=== PATIENT | male | born 1965 | race Caucasian/White ===

== ENCOUNTER 2019-11-26 16:42 | Emergency (ER) | payer BC, SELFPAY ==
[2019-11-26 16:56] VITALS: BP 140/91; PULSE 94; RESP 19; TEMP 36.6; O2SAT 98; BMI 32.8
--- NOTE | 2019-11-26 17:10 | HMH.EDUTC ---
[facility] [place] Clinical Impression: Exposure to COVID-19 virus Disposition: Home, Self-Care Condition on Discharge: Good Instructions: Preventing the Spread of Coronavirus Discharge Instructions Additional Instructions: Drink plenty of fluids. Take tylenol for pain or fever. Follow up with your regular doctor. GO TO THE ER FOR ANY WORSENING SYMPTOMS FOLLOW THE DIRECTIONS ON THE COVID-19 HAND OUT THAT WE GAVE YOU REGARDING SELF-ISOLATION UNTIL YOU KNOW YOUR COVID-19 RESULTS Referrals: PCP,No [Primary Care Provider] - Time of Disposition: 17:17 Medical Decision Making - Medical Records Medical records reviewed: No: I reviewed the patient's medical records. - Rik Inquiry Pt receiving controlled substance: No Vital Signs: 11/26/19 16:56 Temperature 97.9 F Temperature Source Oral Pulse Rate [Right Brachial] 94 H Respiratory Rate 19 Blood Pressure [Right Arm] 140/91 H Blood Pressure Mean [Right Arm] 107 Blood Pressure Source [Right Arm] Automatic Cuff Blood Pressure Position [Right Arm] Sitting 02 Sat by Pulse Oximetry 98 Oxygen Delivery Method Room Air Orders (Tests/Meds): ORDERS Category Date Time Status Covid-19 Nasal PCR ([facility]) Routine Lab 11/26/19 17:02 Ordered [facility] [place] - General Stated complaint: COVID Testing Time Seen by Provider: 11/26/19 17:15 Mode of Arrival: Ambulatory Source of Information: Patient Limitations: No Limitations Description of Symptoms (Recalled from Triage Doc. by RN): PATIENT STATES HE IS NEEDING A COVID TEST FOR NEW JOB. DENIES ANY SYMPTOMS HEENT Symptoms (Recalled from RN notes): No Resp Symptoms (Recalled from RN notes): No Skin Symptoms (Recalled from RN notes): No MS Symptoms (Recalled from RN notes): No Functional Status (Recalled from RN notes): WNL - History of Present Illness Provider Complaint: He needs to be tested for covid-19. he denies any symptoms. - Related Data Home Medications Medication Instructions Recorded Confirmed Aspirin [Aspirin 81mg chewable 81 mg PO DAILY 11/26/19 11/26/19 tab] Allergies Allergy/AdvReac Type Severity Reaction Status Date / Time Penicillins [PENICILLINS] Allergy Unknown is not Verified 02/13/19 01:18 effective - Worker's Comp Is this a Worker's Comp case?: No [facility] History - Hepatitis A Screen Drug use history?: No High risk sexual behaviors?: No History of sexually transmitted infection?: No Currently employed?: No Childcare worker?: No Do you have indoor plumbing?: Yes Do you have electricity?: Yes Attestation statement:: This patient has been screened for Hepatitis A risk factors. I have reviewed the patient's past medical history: Yes Medical History: Denies:: Diabetes Mellitus Type 1, Diabetes Mellitus Type 2, MRSA Amputation: No - Social History Smoking Status: Current every day smoker # Packs/Day (cigarettes): 1 Alcohol Intake: never Occupational Status: other ROS Obtained: Yes All systems reviewed & no additional complaints - Constitutional Constitutional: Denies chills, Denies fever(s) - Eyes Eyes: Denies eye discharge - ENT Ears, Nose, Mouth, and Throat: Denies dizziness, Denies otalgia, Denies sore throat - Cardiovascular Cardiovascular: Denies chest pain - Respiratory Respiratory: No chest congestion, No cough Physical Exam - General General appearance: alert, in no apparent distress - Head Head exam: atraumatic, normocephalic, normal inspection - Eye Eye exam: Present: normal appearance, PERRL, EOMI - ENT ENT exam: Present: normal exam, normal oropharynx, mucous membranes moist, TM's normal bilaterally, normal external ear exam - Neck Neck exam: Present: normal inspection, full ROM, trachea midline. Absent: meningismus, lymphadenopathy - Chest Chest inspection: Present: normal inspection, symmetric chest wall rise. Absent: tenderness - Respiratory Respiratory exam: Present: normal lung sounds bilat
[2019-11-26 17:52] VITALS: BP 140/91; PULSE 94; RESP 19; TEMP 36.6; O2SAT 98
== END 2019-11-26 17:55 | disposition home or self-care (01) ==
PROVIDERS: Emergency Provider Nurse Practitioner Family
DX: Z20.828 Contact with and (suspected) exposure to other viral communicable diseases (principal); F17.210 Nicotine dependence, cigarettes, uncomplicated
CPT/HCPCS: 99201; U0003

== ENCOUNTER 2021-08-27 16:13 | Emergency (ER) | payer BC, SELFPAY ==
[2021-08-27 17:00] VITALS: BP 135/86; PULSE 64; RESP 19; TEMP 36.7; O2SAT 97; BMI 31.7
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
[2021-08-27 17:36] VITALS: BP 135/86; PULSE 64; RESP 19; TEMP 36.7; O2SAT 97
== END 2021-08-27 17:41 | disposition home or self-care (01) ==
PROVIDERS: Emergency Provider Nurse Practitioner
DX: U07.1 COVID-19 (principal); B34.9 Viral infection, unspecified; F17.210 Nicotine dependence, cigarettes, uncomplicated; Z79.82 Long term (current) use of aspirin; Z88.0 Allergy status to penicillin
CPT/HCPCS: 99213; C9803; G0463; U0003; U0005

== ENCOUNTER 2021-10-14 10:45 | Emergency (ER) | payer BC, SELFPAY ==
[2021-10-14] VITALS (10 sets, daily range): BP systolic 108–129; BP diastolic 78–90; PULSE 64–100; RESP 17–20; TEMP 36.6–39.4; O2SAT 96–99; BMI 32.1
[2021-10-14 11:40] LABS: Color,Urine Dark Yellow (Yellow)
[2021-10-14 11:41] LABS: Apearance,Urine Cloudy (Clear); Bilirubin,Urine 1+ (Negative); Blood, Urine 3+ (Negative); Glucose,Urine (UA) Negative (Negative); Ketones,Urine TRACE (Negative); PH,Urine 5.5 (5.0-8.5); Protein,Urine 1+ (Negative); UTC Leukocyte Esterase,Urine Negative (Negative); UTC Nitrate,Urine Negative (Negative); Urobilinogen,Urine 1 EU/dl (0.2)
--- NOTE | 2021-10-14 11:54 | EXP.UTC ---
Discharge Plan Disposition Patient Disposition: Still a Patient Condition: Fair Chief Complaint: Upper Respiratory Infection Prescriptions Prescriptions: No Action aspirin 81 MG tablet,chewable 81 mg PO DAILY Referrals Referrals: Provider,Referral, MD [Primary Care Provider] - Enter time for follow up Clinical Impressions Clinical Impression: Abdominal pain Discharge ED Provider: Clair Villalta [facility] General Chief complaint: Upper Respiratory Infection Stated complaint: eyes swollen and red Mode of Arrival: Ambulatory Source of Information: Patient Limitations: No Limitations Time Seen by Provider: 10/14/21 13:13 Description of Symptoms (Recalled from Triage Doc. by RN): PATIENT C/O REDNESS AND SWELLING TO EYES X 1 MONTH AND FREQUENT URINATION THAT IS DARK IN COLOR X 4 DAYS HEENT Symptoms (Recalled from RN notes): Yes Resp Symptoms (Recalled from RN notes): No Skin Symptoms (Recalled from RN notes): No MS Symptoms (Recalled from RN notes): No Functional Status (Recalled from RN notes): WNL History of Present Illness Provider Complaint: Patient states he has been having redness, swelling and dryness to the skin around his eyes, nose and mouth but he has seen eye doctor and putting lotion on it States that he has been having frequent urination for the last four days with dark color and strong odor States that last night he started having pain in his lower abdomen that was uncomfortable States that this morning he is still having pain and discomfort in his abdomen so he came in Related Data Home Medications Medication Instructions Recorded Confirmed aspirin 81 mg chewable tablet 81 mg PO DAILY Heart disease 11/26/19 11/26/19 Allergies Allergy/AdvReac Type Severity Reaction Status Date / Time Penicillins [PENICILLINS] Allergy Unknown is not Verified 02/13/19 01:18 effective Worker's Comp Is this a Worker's Comp case?: No [facility] Medical History Urinary tract infection Social History Smoking Status: Current every day smoker alcohol intake: never current occupational status: other Travel in the last 8 weeks: None ROS Obtained: Yes All systems reviewed & no additional complaints except as documented and Yes Systems reviewed as appropriate & no additional complaints except as documented Constitutional Constitutional: Reports system reviewed and no additional complaints, except as documented and Reports as per HPI ENT Ears, Nose, Mouth, and Throat: Reports system reviewed and no additional complaints, except as documented and Reports as per HPI Cardiovascular Cardiovascular: Reports system reviewed and no additional complaints, except as documented and Denies chest pain Respiratory Respiratory: Reports system reviewed and no additional complaints, except as documented and Reports as per HPI Gastrointestinal Gastrointestingal: Reports system reviewed and no additional complaints, except as documented, abdominal pain (reports pain across lower abdomen that started last night) and belching Genitourinary Male Genitourinary: Reports system reviewed and no additional complaints, except as documented, Reports urinary frequency, Reports urinary urgency and Reports other (dark urine with foul odor) Musculoskeletal Musculoskeletal: Reports system reviewed and no additional complaints, except as documented Neurologic Neurologic: Reports system reviewed and no additional complaints, except as documented Physical Exam General General appearance: alert and in no apparent distress ENT ENT exam: Present normal exam and normal oropharynx Respiratory Respiratory exam: Present normal lung sounds bilaterally and respiratory distress Cardiovascular Cardiovascular exam: Present regular rate and normal rhythm Abdominal Exam Abdominal exam: Present soft and tenderness Abdominal tenderness: Present
--- NOTE | 2021-10-14 12:17 | PC.NURSE ---
PATIENT SENT TO ER PER Pati LANDAVERDE APRN FOR FURTHER EVALUATION. REPORT GIVEN TO Brandy MEI RN BY Pati LANDAVERDE APRN
--- NOTE | 2021-10-14 12:41 | CT_ITS ---
FINAL REPORT TECHNIQUE: Thin section axial images were obtained through the abdomen after intravenous contrast. Reconstruction images were obtained from the axial data. Exam was performed using dose reduction techniques. CLINICAL HISTORY: abd pain FINDINGS: There is new ground-glass and airspace opacity in the medial right lower lobe. There is a new mixed density nodule in the right lower lobe favoring infectious or inflammatory in nature. The liver is fatty infiltrated without focal lesion. The gallbladder is present. The spleen, adrenal glands, and pancreas are unremarkable. There is a nonobstructing stone in the right renal pelvis. There is no hydronephrosis however there is abnormal attenuation surrounding the right renal hilum with uroepithelial enhancement which could be infectious or inflammatory or related to a recently passed stone. There is no solid renal mass. Abdominal GI tract is without acute abnormality. There is no abdominal lymphadenopathy or ascites. The pelvic solid organs are unremarkable. The pelvic portions of the GI tract, including the appendix, are without acute abnormality. There is no pelvic lymphadenopathy or ascites. There is a small fat containing left inguinal hernia. No acute osseous abnormalities identified. IMPRESSION: 1. Abnormal attenuation in the right renal hilum with uroepithelial enhancement and a nonobstructing stone. These findings could be could be infectious, inflammatory or related to a recently passed stone. Additional consideration would be intermittent obstruction by the stone in the right renal hilum. 2. Findings concerning for new right lower lobe pneumonia. Consider follow-up. 3. Fatty liver. Reviewed, Interpreted and Dictated by Liliana Jackson MD Transcribed by Melissa Jordan Authenticated and [facility]
[2021-10-14 13:01] LABS: Basophils % 0.3 % (0.1-2.0); Eosinophils % 0.2 % (0.1-12.0); Hematocrit 45.5 % (42.0-52.0); Hemoglobin 14.6 g/dL (14.1-18.0); Lymphocytes # 1.6 K/mm3 (0.7-4.5); Lymphocytes % 12.2 % (10-50); Mean Corpuscular HGB Conc 32.1 g/dL (31.8-35.4); Mean Corpuscular Hemoglobin 31.7 pg (27.0-31.2); Mean Corpuscular Volume 98.6 fl (80-94); Mean Platelet Volume 8.2 fl (7.4-10.4); Monocytes # 1.2 K/mm3 (0.1-1.0); Monocytes % 9.2 % (1.7-9.3); Neutrophils % 78.1 % (37.0-80.0); Platelet Count 259 K/mm3 (142-424); Red Blood Count 4.62 M/mm3 (4.60-6.20); Red Cell Distribution Width 12.7 % (11.5-17.5); White Blood Count 12.8 K/mm3 (4.8-10.8)
[2021-10-14 13:07] LABS: Alanine Aminotransferase 22 U/L (12-78); Albumin/Globulin Ratio 1.1 (1.1-1.8); Alkaline Phosphatase 98 U/L (38-126); Aspartate Amino Transferase 29 U/L (17-59); Bilirubin,Total 1.8 mg/dl (0.2-1.3); Blood Urea Nitrogen 14 mg/dl (9-20); Carbon Dioxide 24 mmol/L (22.0-30.0); Chloride 100 mmol/L (98-107); Creatinine Clearance Estimated 122 mL/min (50-200); Estimated Glomerular Filt Rate 77 ml/min (>60); GFR (African American) 94 ML/MIN (>60); Globulin 3.8 g/dL (1.3-3.2); Glucose 158 mg/dl (74-100); Sodium 132 mmol/L (136-145); Total Protein,Serum 7.8 g/dl (6.3-8.2)
--- NOTE | 2021-10-14 13:16 | HMH.EDGENADL ---
Discharge Plan Disposition Patient Disposition: Home, Self-Care Condition: Good Chief Complaint: Upper Respiratory Infection Prescriptions Prescriptions: New sulfamethoxazole-trimethoprim [Bactrim DS] 800-160 mg tablet 1 tab PO BID 10 Days Qty: 20 0RF No Action aspirin 81 MG tablet,chewable 81 mg PO DAILY Referrals Referrals: Provider,MD Foreign [Primary Care Provider] - Enter time for follow up Abran Henry MD [Staff Physician] - 7-14 days Activity Restrictions/Add. Instructions Additional Instructions/Restrictions: You were evaluated in the emergency department today. You were diagnosed with a urinary tract infection and a kidney stone. Please follow-up outpatient with urology in 1 week. Return to the emergency department for any new or worsening symptoms. community support associate your prescription for your antibiotic and take the full course as prescribed. Clinical Impressions Clinical Impression: Abdominal pain, Acute UTI, Kidney stone on right side Instructions Patient Instructions: DI for Kidney Stones, DI for Urinary Tract Infection (UTI) Discharge ED Provider: Clair Villalta General Adult HPI General Chief complaint: Upper Respiratory Infection Stated complaint: eyes swollen and red Time Seen by Provider: 10/14/21 13:13 Mode of Arrival: Ambulatory Source of Information: Patient Limitations: No Limitations Description of Symptoms (Recalled from ER Triage Doc. by RN): PATIENT C/O REDNESS AND SWELLING TO EYES X 1 MONTH AND FREQUENT URINATION THAT IS DARK IN COLOR X 4 DAYS History of Present Illness HPI narrative: This patient is a 56-year-old male presenting to the emergency department from urgent treatment center for evaluation of redness, swelling, and itching around his eyes for 1 month and urinary symptoms that started several days ago. His skin has been itchy. He states that his urine has become more dark, and he is having to urinate much more frequently. He also states that he has had an increase in urinary frequency and lower abdominal pain. No fevers, chills, chest pain, shortness of breath, or other concerns at home. No vision changes. He was sent over emergent treatment center for evaluation, as he had bilirubin in his urine. Related Data Home Medications Medication Instructions Recorded Confirmed aspirin 81 mg chewable tablet 81 mg PO DAILY Heart disease 11/26/19 11/26/19 Previous Rx's Medication Instructions Recorded sulfamethoxazole 800 1 tab PO BID 10 days #20 tabs 10/14/21 mg-trimethoprim 160 mg tablet (Bactrim DS) Allergies Allergy/AdvReac Type Severity Reaction Status Date / Time Penicillins [PENICILLINS] Allergy Unknown is not Verified 02/13/19 01:18 effective PFSH PFSH Medical History Urinary tract infection Social History Smoking Status: Former smoker alcohol intake: never current occupational status: other ROS Obtained: Yes All systems reviewed & no additional complaints except as documented 14 point review of systems obtained and negative except otherwise mentioned in HPI Physical Exam General General appearance: alert and in no apparent distress Head Head exam: atraumatic and normocephalic Eye Eye exam: Present PERRL, EOMI and other (Erythema and mild periorbital swelling of both eyes. No pain with extraocular movements.); Absent conjunctival redness ENT ENT exam: Present normal exam Neck Neck exam: Present normal inspection and full ROM Chest Chest inspection: Present normal inspection and symmetric chest wall rise Respiratory Respiratory exam: Present normal lung sounds bilaterally; Absent respiratory distress Cardiovascular Cardiovascular exam: Present normal rhythm and tachycardia Abdominal Exam Abdominal exam: Present soft and tenderness (Suprapubic); Absent distention, guarding or rebound Extremities Exam Extremitie
--- NOTE | 2021-10-14 13:34 | PC.NURSE ---
Blood cultures and lactic drawn and sent to lab
--- NOTE | 2021-10-14 14:17 | PC.NURSE ---
rounded on pt at this timee. no needs voiced. at the bedside with pt.
--- NOTE | 2021-10-14 16:00 | PC.NURSE ---
DR COPELAND SPEAKING TO DR GARCIA
== END 2021-10-14 18:27 | disposition home or self-care (01) ==
LOC: UTC 12:11 → ER 12:17
PROVIDERS: Nurse Practitioner; Emergency Provider Emergency Medicine
DX: N39.0 Urinary tract infection, site not specified (principal); N20.0 Calculus of kidney; Z88.0 Allergy status to penicillin; I48.91 Unspecified atrial fibrillation
CPT/HCPCS: 74177; 80053; 81003; 83605; 85025; 87040; 87086; 87088; 87186; 96365; 96367; 99285; J0696; Q9967

== ENCOUNTER 2021-10-14 20:08 | Emergency (ER) | payer BC, SELFPAY ==
[2021-10-14 20:09] VITALS: BP 160/76; PULSE 107; RESP 18; TEMP 38.2; O2SAT 98; BMI 32.1
[2021-10-14 20:31] VITALS: BP 129/81; PULSE 112; O2SAT 97
[2021-10-14 21:01] LABS: Basophils # 0.1 K/mm3 (0-0.2); Basophils % 0.5 % (0.1-2.0); Eosinophils # 0.1 K/mm3 (0.0-0.4); Eosinophils % 0.7 % (0.1-12.0); Hematocrit 45.8 % (42.0-52.0); Hemoglobin 14.6 g/dL (14.1-18.0); Lymphocytes # 0.9 K/mm3 (0.7-4.5); Lymphocytes % 7.9 % (10-50); Mean Corpuscular HGB Conc 31.9 g/dL (31.8-35.4); Mean Corpuscular Hemoglobin 31.8 pg (27.0-31.2); Mean Corpuscular Volume 99.8 fl (80-94); Mean Platelet Volume 8.1 fl (7.4-10.4); Monocytes # 0.7 K/mm3 (0.1-1.0); Monocytes % 5.8 % (1.7-9.3); Neutrophils # 9.6 K/mm3 (1.8-7.8); Neutrophils % 85.1 % (37.0-80.0); Platelet Count 245 K/mm3 (142-424); Red Blood Count 4.59 M/mm3 (4.60-6.20); Red Cell Distribution Width 12.6 % (11.5-17.5); White Blood Count 11.3 K/mm3 (4.8-10.8)
--- NOTE | 2021-10-14 21:02 | HMH.EDRECH ---
Discharge Plan Disposition Patient Disposition: Home, Self-Care Chief Complaint: Recheck/Abnormal Lab/Rx Prescriptions Prescriptions: New levofloxacin 500 mg tablet 500 mg PO DAILY Qty: 7 0RF No Action aspirin 81 MG tablet,chewable 81 mg PO DAILY sulfamethoxazole-trimethoprim [Bactrim DS] 800-160 mg tablet 1 tab PO BID 10 Days Qty: 20 0RF Referrals Referrals: Provider,Referral, MD [Primary Care Provider] - Enter time for follow up Clinical Impressions Clinical Impression: CAP (community acquired pneumonia), SIRS (systemic inflammatory response syndrome) Instructions Patient Instructions: Pneumonia-Adult Discharge ED Provider: Jaskaran Silvaeck HPI General Chief Complaint: Recheck/Abnormal Lab/Rx Stated Complaint: possible reaction Time Seen by Provider: 10/14/21 21:02 Mode of Arrival: Ambulatory Source of Information: Patient, Relative and Medical Record Limitations: No Limitations Description of Symptoms (Recalled from ER Triage Doc. by RN): pt states was seen in the er eariler and diagnosed with UTI and kidney stone. after leaving pt became shaking all over and uunable to stop. pt denies any pain or other symptooms History of Present Illness HPI narrative: recent ed eval and concerns about possible kidney stone but has fever/chills since with occ cough - recent covid-19 about 2 weeks ago complaint: other Returns today for: other (fever/chills ) Associated symptoms: fever and chills Related Data Home Medications Medication Instructions Recorded Confirmed aspirin 81 mg chewable tablet 81 mg PO DAILY Heart disease 11/26/19 11/26/19 Previous Rx's Medication Instructions Recorded levofloxacin 500 mg tablet 500 mg PO DAILY #7 tabs 10/14/21 sulfamethoxazole 800 1 tab PO BID 10 days #20 tabs 10/14/21 mg-trimethoprim 160 mg tablet (Bactrim DS) Allergies Allergy/AdvReac Type Severity Reaction Status Date / Time Penicillins [PENICILLINS] Allergy Unknown is not Verified 02/13/19 01:18 effective PFSH PFS Medical History Urinary tract infection Social History (Updated 10/14/21 @ 20:34 by Clair Villalta DO) Smoking Status: Former smoker alcohol intake: never current occupational status: other Travel in the last 8 weeks: None ROS Obtained: Yes Systems reviewed as appropriate & no additional complaints except as documented Constitutional Constitutional: Reports chills and Reports fever(s) Physical Exam General General appearance: alert and in no apparent distress Head Head exam: normocephalic Eye Eye exam: Present PERRL ENT ENT exam: Present normal oropharynx and other (early rosacea) Neck Neck exam: Present full ROM and trachea midline Respiratory Respiratory exam: Present normal lung sounds bilaterally Cardiovascular Cardiovascular exam: Present regular rate and systolic murmur Abdominal Exam Abdominal exam: Present soft Extremities Exam Extremities exam: Absent edema or calf tenderness Neurological Exam Neurological exam: Present alert, oriented X3 and CN II-XII intact Psychiatric Psychiatric exam: Present normal affect Skin Skin exam: Present rash (skin changes as noted above ) Medical Decision Making Medical Records Medical records reviewed: Yes I reviewed the patient's medical records. Rik Inquiry Pt receiving controlled substance: No Vital Signs: 10/14/21 20:09 10/14/21 20:31 10/14/21 21:05 Temperature 100.7 F H Temperature Source Oral Pulse Rate 112 H 110 H Pulse Rate [Right] 107 H Respiratory Rate 18 Blood Pressure 129/81 135/78 Blood Pressure [Right Arm] 160/76 H Blood Pressure Mean [Right Arm] 104 02 Sat by Pulse Oximetry 98 97 98 Oxygen Delivery Method Room Air Room Air 10/14/21 21:30 10/14/21 22:30 Temperature Temperature Source Pulse Rate 101 H 94 H Pulse Rate [Right] Respiratory Rate Blood Pressure 125/78 116/73
[2021-10-14 21:05] VITALS: BP 135/78; PULSE 110; O2SAT 98
--- NOTE | 2021-10-14 21:05 | XR_ITS ---
PROCEDURE INFORMATION: Exam: XR Chest Exam date and time: 10/14/2021 9:05 PM Age: 56 years old Clinical indication: Fever TECHNIQUE: Imaging protocol: Radiologic exam of the chest. Views: 2 views. COMPARISON: CT ABDOMEN PELVIS W CON 10/14/2021 2:32 PM FINDINGS: Lungs: Unremarkable. No consolidation. Pleural spaces: Unremarkable. No pleural effusion. No pneumothorax. Heart/Mediastinum: Unremarkable. No cardiomegaly. Bones/joints: Mild degenerative changes. IMPRESSION: No acute findings.
[2021-10-14 21:07] LABS: Alanine Aminotransferase 24 U/L (12-78); Albumin/Globulin Ratio 1.1 (1.1-1.8); Alkaline Phosphatase 92 U/L (38-126); Anion Gap 11.7 mEq/L (5-15); Aspartate Amino Transferase 30 U/L (17-59); Bilirubin,Total 1.4 mg/dl (0.2-1.3); Blood Urea Nitrogen 15 mg/dl (9-20); Calcium 8.9 mg/dl (8.4-10.2); Carbon Dioxide 27 mmol/L (22.0-30.0); Chloride 100 mmol/L (98-107); Creatinine Clearance Estimated 122 mL/min (50-200); Estimated Glomerular Filt Rate 77 ml/min (>60); GFR (African American) 94 ML/MIN (>60); Globulin 3.6 g/dL (1.3-3.2); Glucose 250 mg/dl (74-100); MANUAL DIFFERENTIAL MANUAL DIFFERENTIAL (MANUAL DIFF); Potassium 3.7 mmoL/L (3.5-5.1); Sodium 135 mmol/L (136-145); Total Protein,Serum 7.6 g/dl (6.3-8.2)
[2021-10-14 21:12] LABS: C-Reactive Protein 94.8 mg/L (0-4)
[2021-10-14 21:25] LABS: Microscopic, Urine URINE MICROSCOPIC (MICROSCOPIC)
[2021-10-14 21:27] LABS: Appearance,Urine CLEAR (Clear); Bilirubin,Urine Negative (Negative); Blood, Urine 2+ (Negative); Color,Urine YELLOW (Yellow); Glucose,Urine (UA) 3+ (Negative); Ketones,Urine TRACE (Negative); Leukocyte Esterase,Urine Negative (Negative); Nitrate,Urine Negative (Negative); PH,Urine 5.5 (5.0-8.5); Protein,Urine TRACE (Negative); Specific Gravity, Urine 1.025 (1.005-1.030)
[2021-10-14 21:30] VITALS: BP 125/78; PULSE 101; O2SAT 98
[2021-10-14 21:35] LABS: Coronavirus 19, PCR Not Detected (NotDetected); Influenza A, PCR Not Detected (NotDetected); Influenza B, PCR Not Detected (NotDetected)
[2021-10-14 21:37] LABS: Eosinophils % 1 % (0-3); Lymphocytes % 16 % (10-50); Monocytes % 1 % (2-9); Neutrophils % 82 % (42-76); Platelet Estimate Normal; RBC Morphology Normal; Total Cells Counted 100
[2021-10-14 21:40] LABS: Erythrocyte Sedimentation Rate 37 mm/hr (0-20)
--- NOTE | 2021-10-14 21:44 | CT_ITS ---
PROCEDURE INFORMATION: Exam: CT Chest Without Contrast; Diagnostic Exam date and time: 10/14/2021 9:55 PM Age: 56 years old Clinical indication: Fever TECHNIQUE: Imaging protocol: Diagnostic computed tomography of the chest without contrast. Radiation optimization: All CT scans at this facility use at least one of these dose optimization techniques: automated exposure control; mA and/or kV adjustment per patient size (includes targeted exams where dose is matched to clinical indication); or iterative reconstruction. COMPARISON: CR XR CHEST 2V 10/14/2021 9:05 PM FINDINGS: Thyroid: Thyroid is unremarkable. Lungs: Current study confirms consolidation and air bronchograms in the medial aspect of the right lower lobe compatible with infectious pneumonia. Subcentimeter calcified granuloma right lower lobe lung. Patchy infiltrates elsewhere within the right upper lobe. Pleural spaces: Scattered pleural based tiny nodularities which are probably benign but should be followed. Heart: Not enlarged. Mediastinal space: Calcified granulomas are identified in the right hilum and subcarinal mediastinum. Reactive soft tissue nodes elsewhere in the pretracheal and right hilar distribution. Lymph nodes: Calcified and noncalcified lymph nodes. Vasculature: Calcifications within thoracic aorta and coronary arteries. Diaphragm: Sliding hiatal hernia. Kidneys and ureters: Contrast within the kidneys from recent CT scan. Bones/joints: Degenerative spondylosis and facet arthropathy within the spine. Soft tissues: See Mediastinal space finding. IMPRESSION: 1. Right lower lobe pneumonia. Patchy infiltrates right upper lobe. Mild reactive right hilar and mediastinal adenopathy. 2. Atherosclerotic vascular disease. 3. Sliding hiatal hernia. 4. Contrast within the kidneys from recent CT scan. 5. Scattered pleural based tiny nodularities which are probably benign but should be followed.
--- NOTE | 2021-10-14 21:44 | PC.NURSE ---
Pt and family updated on POC. No needs voiced.
[2021-10-14 21:49] LABS: Bacteria,Urine 2+ /lpf; Squamous Epithelial Cell,Urine Occasional #/hpf (0-5); WBC,Urine Occasional #/hpf (0-3)
[2021-10-14 22:26] LABS: Hemoglobin A1C 6.8 % (4.0-6.0)
[2021-10-14 22:30] VITALS: BP 116/73; PULSE 94; O2SAT 96
[2021-10-15 00:58] VITALS: BP 114/72; PULSE 92; RESP 16; TEMP 37.2; O2SAT 97
== END 2021-10-15 01:02 | disposition home or self-care (01) ==
PROVIDERS: Emergency Provider Emergency Medicine
DX: J18.9 Pneumonia, unspecified organism (principal); Z79.82 Long term (current) use of aspirin; Z88.0 Allergy status to penicillin; Z87.891 Personal history of nicotine dependence; I48.91 Unspecified atrial fibrillation
CPT/HCPCS: 71046; 71250; 80053; 81001; 83036; 83605; 85007; 85025; 85651; 86140; 96365; 96367; 96375; 99285; C9803; J0456; U0003; U0005

== ENCOUNTER 2021-10-15 14:50 | Inpatient (IN) | payer BC, SELFPAY ==
[2021-10-15] VITALS (10 sets, daily range): BP systolic 114–152; BP diastolic 67–105; PULSE 85–103; RESP 13–24; TEMP 36.7–39.5; O2SAT 95–99; BMI 32.1; BMI 31.2
--- NOTE | 2021-10-15 14:48 | ECG_ITS ---
APPROVED REPORT Exam: Resting ECG HR:109 bpm ECG Measurements Heart Rate 109 AXES QRSd 82 QRS -26 QT 298 T 51 QTc 362 Conclusion ATRIAL FIBRILLATION WITH RAPID VENTRICULAR RESPONSE BORDERLINE LEFT AXIS DEVIATION [QRS AXIS < -20] ABNORMAL RHYTHM ECG UNCONFIRMED REPORT Electronically signed by : Beau Buckley MD 10/16/2021 07:59:49
--- NOTE | 2021-10-15 15:09 | XR_ITS ---
FINAL REPORT CLINICAL HISTORY: chest pain COMPARISON: October 14, 2021 FINDINGS: The heart size is normal. The mediastinum is normal. There is no focal infiltrate or edema. There are no pleural effusions. There is no pneumothorax. There is no osseous abnormality. IMPRESSION: No acute cardiopulmonary process Reviewed, Interpreted and Dictated by Chuy Catalan MD Transcribed by Berenice Washington Authenticated and [facility]
[2021-10-15 15:35] LABS: Alanine Aminotransferase 27 U/L (12-78); Albumin Level 3.7 g/dl (3.5-5.0); Albumin/Globulin Ratio 1.1 (1.1-1.8); Alkaline Phosphatase 81 U/L (38-126); Anion Gap 9.8 mEq/L (5-15); Aspartate Amino Transferase 37 U/L (17-59); Bilirubin,Total 0.4 mg/dl (0.2-1.3); Blood Urea Nitrogen 12 mg/dl (9-20); Calcium 8.6 mg/dl (8.4-10.2); Carbon Dioxide 25 mmol/L (22.0-30.0); Chloride 103 mmol/L (98-107); Creatinine Clearance Estimated 135 mL/min (50-200); Estimated Glomerular Filt Rate 87 ml/min (>60); GFR (African American) 106 ML/MIN (>60); Globulin 3.4 g/dL (1.3-3.2); Glucose 134 mg/dl (74-100); Lactic Acid 1.9 mmol/L (0.7-2.1); Potassium 3.8 mmoL/L (3.5-5.1); Sodium 134 mmol/L (136-145); Total Protein,Serum 7.1 g/dl (6.3-8.2)
[2021-10-15 15:41] LABS: Basophils # 0.1 K/mm3 (0-0.2); Basophils % 0.5 % (0.1-2.0); Eosinophils # 0.2 K/mm3 (0.0-0.4); Eosinophils % 1.5 % (0.1-12.0); Hematocrit 37.1 % (42.0-52.0); Hemoglobin 13.4 g/dL (14.1-18.0); Lymphocytes # 1.5 K/mm3 (0.7-4.5); Lymphocytes % 14.6 % (10-50); Mean Corpuscular HGB Conc 36.1 g/dL (31.8-35.4); Mean Corpuscular Hemoglobin 33.3 pg (27.0-31.2); Mean Corpuscular Volume 92.4 fl (80-94); Mean Platelet Volume 7.9 fl (7.4-10.4); Monocytes # 0.9 K/mm3 (0.1-1.0); Monocytes % 9.1 % (1.7-9.3); Neutrophils # 7.5 K/mm3 (1.8-7.8); Neutrophils % 74.2 % (37.0-80.0); Platelet Count 208 K/mm3 (142-424); Red Blood Count 4.01 M/mm3 (4.60-6.20); Red Cell Distribution Width 12.1 % (11.5-17.5); White Blood Count 10.1 K/mm3 (4.8-10.8)
[2021-10-15 15:53] LABS: Troponin I < 0.01 ng/ml (0.00-0.034)
--- NOTE | 2021-10-15 18:17 | HMH.EDGENADL ---
Discharge Plan Disposition Patient Disposition: Admitted as Observation Condition: Fair Chief Complaint: Chest Pain Prescriptions Prescriptions: No Action sulfamethoxazole-trimethoprim [Bactrim DS] 800-160 mg tablet 1 tab PO BID levofloxacin 500 mg tablet 500 mg PO DAILY Referrals Referrals: Provider,Referral, [Primary Care Provider] - Enter time for follow up Clinical Impressions Clinical Impression: Pneumonia, Atrial fibrillation, new onset Discharge ED Provider: Rusty Garrett General Adult HPI General Chief complaint: Chest Pain Stated complaint: chest pain Time Seen by Provider: 10/15/21 18:20 Mode of Arrival: Ambulatory Source of Information: Patient Limitations: No Limitations Description of Symptoms (Recalled from ER Triage Doc. by RN): to ed per pvt car with c/o chest pressure, sob, nausea. pt seen yesterday in ed and dx with pneumonia and given levaquin. pt states chest pain and sob worse with exertion. History of Present Illness HPI narrative: This is of the third visit to this emergency department for this patient in 2 days. He presented initially to the urgent treatment center yesterday with some allergy symptoms but also dark urine and lower abdominal pain. He was sent to the emergency department for further evaluation and had a CT scan of his abdomen and pelvis which showed a renal calculus and questionable findings of pyelonephritis or recently passed stone. There is also noted to be an infiltrate in the lung portion of the CT. He was discharged on Bactrim with urology follow-up. He developed severe shaking which sounds like rigors, return to the emergency department. He had further work-up including CT scan of the chest without contrast which showed pulmonary infiltrates. He was discharged on Levaquin. He says that he went to work today but at work began having chest pain in the center of his chest as well as shortness of breath, particular with exertion. He only has a slight cough. No rhinorrhea or sore throat. No flank or back pain except for his chronic back pain which is unchanged. No vomiting or diarrhea. No urinary symptoms today. No abdominal pain today. Related Data Home Medications Medication Instructions Recorded Confirmed levofloxacin 500 mg tablet 500 mg PO DAILY Infection 10/15/21 10/15/21 sulfamethoxazole 800 1 tab PO BID Infection 10/15/21 10/15/21 mg-trimethoprim 160 mg tablet (Bactrim DS) Allergies Allergy/AdvReac Type Severity Reaction Status Date / Time Penicillins [PENICILLINS] Allergy Unknown is not Verified 02/13/19 01:18 effective PFSH [facility] Medical History Urinary tract infection Social History (Updated 10/15/21 @ 15:20 by Kamala Wiley RN) Smoking Status: Former smoker alcohol intake: never current occupational status: other Travel in the last 8 weeks: None ROS Obtained: Yes Systems reviewed as appropriate & no additional complaints except as documented Constitutional Constitutional: Reports chills and Reports fever(s) ENT Ears, Nose, Mouth, and Throat: Denies nasal discharge and Denies sore throat Cardiovascular Cardiovascular: Reports chest pain and Reports dyspnea on exertion Respiratory Respiratory: Reports shortness of breath, Reports cough (Slight, nonproductive) and Reports dyspnea on exertion Gastrointestinal Gastrointestingal: Reports abdominal pain (Yesterday but not today); Denies diarrhea or vomiting Genitourinary Male Genitourinary: Reports as per HPI and Denies flank pain Musculoskeletal Musculoskeletal: Reports back pain (Chronic) Physical Exam General General appearance: alert and in no apparent distress Head Head exam: atraumatic and normocephalic Eye Eye exam: Present normal appearance and EOMI ENT ENT exam: Present normal exam and mucous membranes moist Neck Neck exam: Present normal inspection and full ROM; Absent meningism
--- NOTE | 2021-10-15 18:27 | CT_ITS ---
PROCEDURE INFORMATION: Exam: CTA Chest With Contrast Exam date and time: 10/15/2021 6:44 PM Age: 56 years old Clinical indication: Sternal or substernal pain; Additional info: Chest pain, SOA TECHNIQUE: Imaging protocol: Computed tomographic angiography of the chest with contrast. 3D rendering (Not supervised by radiologist): MIP and/or 3D reconstructed images were created by the technologist. Radiation optimization: All CT scans at this facility use at least one of these dose optimization techniques: automated exposure control; mA and/or kV adjustment per patient size (includes targeted exams where dose is matched to clinical indication); or iterative reconstruction. Contrast material: ISOVUE 370; Contrast volume: 70 ml; Contrast route: INTRAVENOUS (IV); COMPARISON: CT CHEST WO CON 10/14/2021 9:55 PM FINDINGS: Pulmonary arteries: Normal. No pulmonary emboli. Aorta: Click aortic arch. Lungs: Densely calcified granuloma right lung base. Increasing region of consolidation involving the right lower lobe. Patchy infiltrative somewhat nodular region of opacification in the right upper lobe has progressed. Pleural spaces: Unremarkable. No pneumothorax. No pleural effusion. Heart: No evidence of coronary artery calcification. Lymph nodes: Calcified subcarinal lymph nodes as well as noncalcified perihilar lymph nodes again demonstrated. Noncalcified pretracheal lymph nodes again identified. Bones/joints: Thoracic spondylosis. Soft tissues: Unremarkable. IMPRESSION: 1. No evidence of pulmonary embolus. 2. Increasing regions of consolidation involving the right lower lobe and right upper lobe as described above. Commonly reported imaging features of COVID-19 pneumonia are present. Other processes such as influenza pneumonia and organizing pneumonia, as can be seen with drug toxicity and connective tissue disease, can cause a similar imaging pattern. (Reference: Edgardo) 3. Evidence of previous granulomatous disease. REFERENCES: Edgardo Diamond et al., Radiological Society of [place] Expert Consensus Statement on Reporting Chest CT Findings Related to COVID-19. Endorsed by the Society of Thoracic Radiology, the [place] [employer], and RSNA. Published May 15, 2019.
[2021-10-15 18:46] LABS: Troponin I < 0.01 ng/ml (0.00-0.034)
[2021-10-15 19:09] LABS: Free Thyroxine Index 2.1 ug/dL (5.93-13.13); T4 (Thyroxine) 6.5 ug/dl (5.53-11.0); Triiodothryronine (T3) Uptake 33 % (23.5-40.5)
[2021-10-15 19:23] LABS: Thyroid Stimulating Hormone 1.35 uIU/mL (0.465-4.68)
[2021-10-15 19:59] LABS: Coronavirus 19, PCR Not Detected (NotDetected); Influenza A, PCR Not Detected (NotDetected); Influenza B, PCR Not Detected (NotDetected)
[2021-10-15 20:19] LABS: Adenovirus,PCR Not Detected (NotDetected); Bordetella Pertussis Not Detected (NotDetected); Chlamydophila Pneumoniae, PCR Not Detected (NotDetected); Coronavirus 19, PCR Not Detected (NotDetected); Coronavirus 229E Not Detected (NotDetected); Coronavirus NL63 Not Detected (NotDetected); Coronavirus OC43 Not Detected (NotDetected); Coronovirus HKU1,PCR Not Detected (NotDetected); Human Metapneumovirus Not Detected (NotDetected); Influenza A, PCR Not Detected (NotDetected); Influenza AH1, 2009 Not Detected (NotDetected); Influenza AH1, PCR Not Detected (NotDetected); Influenza AH3,PCR Not Detected (NotDetected); Influenza B, PCR Not Detected (NotDetected); Mycoplasma Pneumoniae, PCR Not Detected (NotDetected); Parainfluenza 1, PCR Not Detected (NotDetected); Parainfluenza 2, PCR Not Detected (NotDetected); Parainfluenza 3, PCR Not Detected (NotDetected); Parainfluenza 4, PCR Not Detected (NotDetected); Respiratory Syncytial Virus Not Detected (NotDetected); Rhinovirus/Enterovirus Not Detected (NotDetected)
--- NOTE | 2021-10-15 20:23 | PC.NURSE ---
at updating pt about POC
--- NOTE | 2021-10-15 20:31 | PC.NURSE ---
House notified of pt admission and need for bed assignment.
[2021-10-15 22:03] LABS: Troponin I < 0.01 ng/ml (0.00-0.034)
--- NOTE | 2021-10-15 22:23 | PC.NURSE ---
PT ARRIVED TO FLOOR AT 22:06
[2021-10-16] VITALS (7 sets, daily range): BP systolic 137–153; BP diastolic 66–83; PULSE 61–96; RESP 17–24; TEMP 36.7–37.5; O2SAT 96–98; BMI 31.2
--- NOTE | 2021-10-16 04:42 | PC.NURSE ---
Patient a&o x4. Patient tolerating RA with sats above 90%. Patient ambulates to the restroom independently. VSS. Call light in reach.
[2021-10-16 09:02] LABS: Basophils # 0.1 K/mm3 (0-0.2); Basophils % 0.6 % (0.1-2.0); Eosinophils # 0.3 K/mm3 (0.0-0.4); Eosinophils % 3.4 % (0.1-12.0); Hematocrit 38.5 % (42.0-52.0); Hemoglobin 12.7 g/dL (14.1-18.0); Lymphocytes # 1.5 K/mm3 (0.7-4.5); Lymphocytes % 18.7 % (10-50); Mean Corpuscular HGB Conc 32.9 g/dL (31.8-35.4); Mean Corpuscular Volume 97.2 fl (80-94); Mean Platelet Volume 8.7 fl (7.4-10.4); Monocytes # 0.7 K/mm3 (0.1-1.0); Monocytes % 8.5 % (1.7-9.3); Neutrophils # 5.7 K/mm3 (1.8-7.8); Neutrophils % 68.8 % (37.0-80.0); Platelet Count 248 K/mm3 (142-424); Red Blood Count 3.96 M/mm3 (4.60-6.20); Red Cell Distribution Width 12.7 % (11.5-17.5); White Blood Count 8.2 K/mm3 (4.8-10.8)
--- NOTE | 2021-10-16 09:17 | EXP.HP ---
History of Present Illness *Admission Date: 10/15/21 *Reason for visit:: fever *History of present illness: this patient had been in the ed with fever and was felt yo have cap - he was given iv abx and d/c home as op - pt returned to the ed per pvt car with c/o chest pressure, sob, nausea. pt seen yesterday in ed and dx with pneumonia and given levaquin. pt states chest pain and sob worse with exertion. This is of the third visit to this emergency department for this patient in 2 days.? He presented initially to the urgent treatment center yesterday with some allergy symptoms but also dark urine and lower abdominal pain.? He was sent to the emergency department for further evaluation and had a CT scan of his abdomen and pelvis which showed a renal calculus and questionable findings of pyelonephritis or recently passed stone.? There is also noted to be an infiltrate in the lung portion of the CT.? He was discharged on Bactrim with urology follow-up.? He developed severe shaking which sounds like rigors, return to the emergency department.? He had further work-up including CT scan of the chest without contrast which showed pulmonary infiltrates.? He was discharged on Levaquin.? He says that he went to work today but at work began having chest pain in the center of his chest as well as shortness of breath, particular with exertion.? He only has a slight cough.? No rhinorrhea or sore throat.? No flank or back pain except for his chronic back pain which is unchanged.? No vomiting or diarrhea.? No urinary symptoms today.? No abdominal pain today.pt was noted to have a fib and had increased sx and was admitted - [facility] Medical History Urinary tract infection Social History (Updated 10/15/21 @ 15:20 by Kamala Wiley RN) Smoking Status: Former smoker alcohol intake: never current occupational status: other Travel in the last 8 weeks: None Review of Systems Review of Systems Review of systems:: pertinent systems reviewed and negative unless documented below Meds Home Medications and Allergies Home Medications Medication Instructions Recorded Confirmed Type levofloxacin 500 mg tablet 500 mg PO DAILY Infection 10/15/21 10/15/21 History sulfamethoxazole 800 1 tab PO BID Infection 10/15/21 10/15/21 History mg-trimethoprim 160 mg tablet (Bactrim DS) New Prescriptions to Start Prescriptions: Allergies Allergy/AdvReac Type Severity Reaction Status Date / Time Penicillins [PENICILLINS] Allergy Unknown is not Verified 02/13/19 01:18 effective Exam Data for Last 24 hours Vital signs and Labs for Last 24 Hours: Temp Pulse Resp BP Pulse Ox 99.3 F 87 24 141/73 H 97 10/16/21 08:00 10/16/21 08:00 10/16/21 08:00 10/16/21 08:00 10/16/21 08:00 Laboratory Results - last 24 hr 10/15/21 15:00: WBC 10.1, RBC 4.01 L, Hgb 13.4 L, Hct 37.1 L, MCV 92.4, MCH 33.3 H, MCHC 36.1 H, RDW 12.1, Plt Count 208, MPV 7.9, Neut % (Auto) 74.2, Lymph % (Auto) 14.6, [place] % (Auto) 9.1, Eos % (Auto) 1.5, Baso % (Auto) 0.5, Neut # (Auto) 7.5, Lymph # (Auto) 1.5, [place] # (Auto) 0.9, Eos # (Auto) 0.2, Baso # (Auto) 0.1 10/15/21 15:00: Sodium 134 L, Potassium 3.8, Chloride 103, Carbon Dioxide 25, Anion Gap 9.8, BUN 12, Creatinine 0.90, Estimated Creat Clear 135, Estimated GFR 87, Est GFR ( Amer) 106, Glucose 134 H D, Calcium 8.6, Total Bilirubin 0.4, AST 37, ALT 27, Alkaline Phosphatase 81, Troponin I < 0.01, Total Protein 7.1, Albumin 3.7, Globulin 3.4 H, Albumin/Globulin Ratio 1.1 10/15/21 15:00: Lactate 1.9 10/15/21 15:00: TSH 1.35, Free T4 Index 2.1 L, Thyroxine (T4) 6.5, T3 Uptake 33 10/15/21 16:00: Chlamy pneumoniae PCR Not detected, Adenovirus (PCR) Not detected, B. pertussis DNA (PCR) Not detected, Coronavirus OC43 (PCR) Not detected, Coronavirus HKU1 (PCR) Not detected, Coronavirus 229E (PCR) Not detected, SARS-CoV-2 (PCR) Not detected, Coronavirus NL63 (PCR) N
--- NOTE | 2021-10-16 11:18 | P.CONPHA_ITS ---
[facility] Pharmacy VTE Monitoring Patient Demographics Admission date: 10/15/21 Report Date: 10/16/21 Time: 11:18 Patient Allergies Penicillins [PENICILLINS] Allergy (Unknown, Verified 02/13/19 01:18) is not effective Height: 1.8 m Weight: 101.236 kg Current Active Problems (Updated 10/15/21 @ 20:29 by Rusty Garrett MD) Pneumonia (Acute) Atrial fibrillation, new onset (Acute) VTE Risk Labs: VTE Related Lab Results Hgb 12.7 g/dL (14.1-18.0) L 10/16/21 08:35 Hct 38.5 % (42.0-52.0) L 10/16/21 08:35 Plt Count 248 K/mm3 (142-424) 10/16/21 08:35 BUN 12 mg/dl (9-20) 10/15/21 15:00 Creatinine 0.90 mg/dl (0.66-1.25) 10/15/21 15:00 Estimated Creat Clear 135 mL/min (50-200) 10/15/21 15:00 Was VTE Risk Assessment Performed: Yes VTE Score: 2 VTE Risk Level: Very Low Risk Clinical Trial Participant: No Prophylaxis VTE Prophylaxis Ordered?: Yes Types of VTE Prophylaxis: TEDS Knee High Location of Applied Device: Bilateral Lower Extremeties
--- NOTE | 2021-10-16 11:18 | HMH.PHAINT1 ---
Pharmacy Intervention Comments: MEDICATION RECONCILIATION COMPLETE USING LIST FROM MOST RECENT ED VISIT.
--- NOTE | 2021-10-16 16:30 | PC.NURSE ---
Gave pt specimen cup to try and get sputum specimen. He stated that his is unable to get anything up and will try. If he does he stated that he will let me know.
--- NOTE | 2021-10-16 18:46 | PC.NURSE ---
Pt is A/Ox4. He has tolerated his cardiac diet well today. He is independent in the room to go the bathroom. His is at bedside.
[2021-10-17 04:00] VITALS: BP 106/54; PULSE 60; RESP 17; TEMP 36.9; O2SAT 97
[2021-10-17 04:13] VITALS: BMI 31.5
--- NOTE | 2021-10-17 04:15 | PC.NURSE ---
No acute changes since previous assessment. Pt has rested intermittently this shift. Remains alert and oriented x4. Has been afebrile this shift. Ambulating independently in room. Lung sounds remain clear bilaterally. Tolerating room air well. Pt did c/o a headache once this shift and was medicated per apr. no c/o n/v/d or shortness of breath. Pt expresses his desire to be discharged. VSS.
[2021-10-17 08:00] VITALS: BP 120/80; PULSE 75; RESP 16; TEMP 36.7; O2SAT 96
--- NOTE | 2021-10-17 08:15 | PC.NURSE ---
Spoke with RT about Sputum.
--- NOTE | 2021-10-17 08:42 | ECG_ITS ---
APPROVED REPORT Exam: Resting ECG HR:70 bpm ECG Measurements Heart Rate 70 AXES QRSd 79 QRS 18 QT 379 T 39 QTc 400 Conclusion ATRIAL FIBRILLATION ABNORMAL RHYTHM ECG UNCONFIRMED REPORT Electronically signed by : Beau Buckley MD 10/18/2021 20:11:33
[2021-10-17 08:55] LABS: Basophils # 0.1 K/mm3 (0-0.2); Basophils % 0.8 % (0.1-2.0); Eosinophils # 0.5 K/mm3 (0.0-0.4); Eosinophils % 6.7 % (0.1-12.0); Hematocrit 40.1 % (42.0-52.0); Hemoglobin 12.8 g/dL (14.1-18.0); Lymphocytes # 1.4 K/mm3 (0.7-4.5); Mean Corpuscular HGB Conc 31.8 g/dL (31.8-35.4); Mean Corpuscular Hemoglobin 31.2 pg (27.0-31.2); Mean Platelet Volume 8.4 fl (7.4-10.4); Monocytes # 0.6 K/mm3 (0.1-1.0); Monocytes % 7.7 % (1.7-9.3); Neutrophils # 4.6 K/mm3 (1.8-7.8); Neutrophils % 64.8 % (37.0-80.0); Platelet Count 271 K/mm3 (142-424); Red Cell Distribution Width 12.6 % (11.5-17.5); White Blood Count 7.1 K/mm3 (4.8-10.8)
--- NOTE | 2021-10-17 09:08 | PC.NURSE ---
courtesy tech round: Pt was sleep on right side. Call light within reach.
[2021-10-17 09:11] LABS: Alanine Aminotransferase 23 U/L (12-78); Albumin Level 3.2 g/dl (3.5-5.0); Alkaline Phosphatase 88 U/L (38-126); Anion Gap 14.1 mEq/L (5-15); Aspartate Amino Transferase 28 U/L (17-59); Blood Urea Nitrogen 8 mg/dl (9-20); Calcium 8.4 mg/dl (8.4-10.2); Carbon Dioxide 25 mmol/L (22.0-30.0); Chloride 108 mmol/L (98-107); Creatinine Clearance Estimated 199 mL/min (50-200); Estimated Glomerular Filt Rate 139 ml/min (>60); GFR (African American) 169 ML/MIN (>60); Globulin 3.2 g/dL (1.3-3.2); Glucose 211 mg/dl (74-100); Potassium 4.1 mmoL/L (3.5-5.1); Sodium 143 mmol/L (136-145); Total Protein,Serum 6.4 g/dl (6.3-8.2)
[2021-10-17 09:19] LABS: Bilirubin,Total < 0.1 mg/dl (0.2-1.3)
--- NOTE | 2021-10-17 10:40 | EXP.DC.SUM ---
General Admission date:: 10/15/21 Discharge date: 10/17/21 HPI HPI HPI: this patient had been in the ed with fever and was felt yo have cap - he was given iv abx and d/c home as op - pt returned to the ed per pvt car with c/o chest pressure, sob, nausea. pt seen yesterday in ed and dx with pneumonia and given levaquin. pt states chest pain and sob worse with exertion. This is of the third visit to this emergency department for this patient in 2 days.? He presented initially to the urgent treatment center yesterday with some allergy symptoms but also dark urine and lower abdominal pain.? He was sent to the emergency department for further evaluation and had a CT scan of his abdomen and pelvis which showed a renal calculus and questionable findings of pyelonephritis or recently passed stone.? There is also noted to be an infiltrate in the lung portion of the CT.? He was discharged on Bactrim with urology follow-up.? He developed severe shaking which sounds like rigors, return to the emergency department.? He had further work-up including CT scan of the chest without contrast which showed pulmonary infiltrates.? He was discharged on Levaquin.? He says that he went to work today but at work began having chest pain in the center of his chest as well as shortness of breath, particular with exertion.? He only has a slight cough.? No rhinorrhea or sore throat.? No flank or back pain except for his chronic back pain which is unchanged.? No vomiting or diarrhea.? No urinary symptoms today.? No abdominal pain today.pt was noted to have a fib and had increased sx and was admitted - Hospital Course Hospital Course Hospital Course: pt has did well on ivf and abx with stable labs and vital signs and will be d/c on xarelto for new a fib and see card on monday and continue abx as outpt Exam Data for Last 24 hours Vital signs and Labs for Last 24 Hours: Temp Pulse Resp BP Pulse Ox 98.1 F 75 16 120/80 96 10/17/21 08:00 10/17/21 08:00 10/17/21 08:00 10/17/21 08:00 10/17/21 08:00 Laboratory Results - last 24 hr 10/17/21 08:45: WBC 7.1, RBC 4.10 L, Hgb 12.8 L, Hct 40.1 L, MCV 98.0 H, MCH 31.2, MCHC 31.8, RDW 12.6, Plt Count 271, MPV 8.4, Neut % (Auto) 64.8, Lymph % (Auto) 20.0, [place] % (Auto) 7.7, Eos % (Auto) 6.7, Baso % (Auto) 0.8, Neut # (Auto) 4.6, Lymph # (Auto) 1.4, [place] # (Auto) 0.6, Eos # (Auto) 0.5 H, Baso # (Auto) 0.1 10/17/21 08:45: Sodium 143, Potassium 4.1, Chloride 108 H, Carbon Dioxide 25, Anion Gap 14.1, BUN 8 L D, Creatinine 0.60 L D, Estimated Creat Clear 199, Estimated GFR 139, Est GFR ( Amer) 169 D, Glucose 211 H, Calcium 8.4, Total Bilirubin < 0.1 L, AST 28, ALT 23, Alkaline Phosphatase 88, Total Protein 6.4, Albumin 3.2 L, Globulin 3.2, Albumin/Globulin Ratio 1.0 L I & O for Last 24 hours: Intake & Output 10/14/21 10/15/21 10/16/21 10/17/21 11:59 11:59 11:59 11:59 Intake Total 910 2016 Output Total 0 / 0 0 / 0 Balance 0 2016 Weight 223 lb 3 oz 225 lb 4 oz Constitutional Constitutional: no acute distress *Routine HEENT Exam Head: Present atraumatic Eye: Present EOMI and PERRL ENT: Present mucous membranes moist *Routine Neck Exam Neck: Absent JVD *Routine Respiratory Exam Respiratory: Present decreased breath sounds *Routine Cardiovascular Exam Cardiovascular: Present murmur and irregular rhythm *Routine Abdominal Exam Abdominal: Present soft *Routine Rectal Exam Comments: deffered *Routine Exam Comments: deferred *Routine Extremities Exam Extremities: Absent edema *Routine Skin Exam Skin: Present rash (rash to face ) *Routine Neurological Exam Neurological: Present alert and CN II-XII intact Routine Psychiatric Exam Psychiatric: Present cooperative Results Data Completed and Pending Labs on day of discharge: Labs from last 24 hours 08/28/22 08/28/22 08:45 08:45 WBC 7.1 RBC 4.10 L Hgb 12.8 L Hct 40.1 L MCV 98.0 H MCH 31.
--- NOTE | 2021-10-17 11:52 | PC.NURSE ---
Gave pt desmond, and told him about being able to D/C. He stated that his will not be here until after 1300.
--- NOTE | 2021-10-17 12:23 | PC.NURSE ---
D/C packet is being fixed will.
--- NOTE | 2021-10-17 12:57 | HMH.PHAINT1 ---
Pharmacy Intervention Comments: DISCHARGE MEDICATION COUNSELING PROVIDED. DISCUSSED CONTINUING THE LEVAQUIN AND ADDITION XARELTO 20 MG DAILY WITH EVENING MEAL. WATCH FOR SIGNS/SYMPTOMS OF BLEEDING, BLOOD IN URINE/STOOL/VOMIT, AND IF YOU BUMP HEAD GO TO THE ER TO RULE OUT HEAD BLEED. PATIENT VERBALIZED NO QUESTIONS AT THIS TIME.
--- NOTE | 2021-10-19 14:04 | CARE MANAGER ---
Attempted post-discharge interview, no answer.
== END 2021-10-17 13:09 | disposition home or self-care (01) | DRG 195 ==
LOC: ER 20:29 → 2ND 20:51
PROVIDERS: Admitting Provider Emergency Medicine; Emergency Provider Emergency Medicine; Visit Provider Emergency Medicine
DX: J18.9 Pneumonia, unspecified organism (principal); Z87.891 Personal history of nicotine dependence; I48.91 Unspecified atrial fibrillation; E66.9 Obesity, unspecified; Z68.34 Body mass index [BMI] 34.0-34.9, adult; G89.29 Other chronic pain; M54.9 Dorsalgia, unspecified
CPT/HCPCS: 36415; 71045; 71275; 80053; 83605; 84436; 84443; 84479; 84484; 85025; 87040; 87581; 87632; 87798; 93005; 99285; C9803; G0378; J0456; J0696; Q9967; U0003; U0005

== ENCOUNTER → 2021-10-26 06:24 | Outpatient (CLI) | payer BC, SELFPAY ==
--- NOTE | 2021-10-26 06:25 | CA_ITS ---
APPROVED REPORT Exam: Pharmacologic Technologist: Paz Gabriel, Ht: 5 ft 11 in Wt: 221 lbs BSA: 2.20 m2 HR: 78 bpm BP: 124/84 mmHg Indications: Afib Medical History Medications: XaRELTO,,,,, BisOPROLOL Fumarate,,,,, Levofloxacin,,,,, Stress Test Details Test: LEXISCAN Reason for pharmacologic stress test: physical limitation. HR Resting HR: 56 bpm Max Heart Rate (APMHR): 164.723666 bpm Max HR Achieved: 122 bpm Target HR (85% APMHR): 139.293061 bpm % of APMHR: 74.39 Recovery HR: 80 bpm BP Resting BP: 124/84 mmHg Max BP: 137/82 mmHg Recovery BP: 120.0/87.0 mmHg ECG Resting ECG: Afib, controlled rate, T wave abn lead III, rightward axis Clinical Exercise duration: 04:00 min Highest Stage Achieved: Exercise capacity: 1.0 METs Stress ECG Conclusion Symptoms: SOA, mild stomach discomfort. Arrhythmias/Ectopy: Afib throughout. ST-T Changes: No significant changes. Conclusion: Unremarkable Lexiscan stress. Myoview images reported septarately. Electronically signed by : Reno Bustamante MD 10/26/2021 20:03:47
--- NOTE | 2021-10-26 06:25 | NM_ITS ---
APPROVED REPORT Exam: Nuclear Stress Test Indication: Chest pain, SOB, Abnormal EKG, Family history Patient Location: Outpatient Stress Tech: Paz Story [place] Tech:Yenny Harrington, ARRT, RT (R)(N) Ht: 5 ft 11 in Wt: 230 lbs HR: 56 bpm BP: 124/84 mmHg BSA: 2.24 m2 TID: 1.22 BMI: 32.0 History: Chest pain, SOB, Abnormal EKG, Family history Procedure: Patient received a 0.4 mg of intravenous Lexiscan, resting heart rate 56 bpm, resting blood pressure 124/84 mmHg, with Lexiscan maximum heart rate achived was 122 bpm which is Less than 85 % of the maximum predicted heart rate and blood pressure was 137/82 mmHg. With Lexiscan, patient denied any complaint of chest pain. Electrocardiogram Resting electrocardiogram shows atrial fibrillation, with Lexiscan there is less than 1.[address] segment depression noted from the baseline EKG. The EKG portion of the Lexiscan is nondiagnostic. Cardiac Stress and Resting SPECT Images: Cardiac Stress and Resting SPECT images were obtained using technetium 99m Myoview 32.9 mCi stress and 10.28 mCi at rest. Gated SPECT analysis of segmental wall motion and calculation of the ejection fraction also done. Prone images were also obtained. Cardiac stress and rest SPECT images uniform myocardial activity without segmental perfusion abnormality, computer derived ejection fraction is 41% with no regional wall motion abnormality, however during this study patient was in atrial fibrillation which may underestimate the ejection fraction by gated SPECT. Conclusion: 1. The EKG portion of the Lexiscan is nondiagnostic. 2. No scintigraphic evidence of reversible ischemia seen, computer derived ejection fraction is 41% with no regional wall motion abnormality, however during this study patient was in atrial fibrillation which may underestimate the ejection fraction by gated SPECT. 3. Likely normal Lexiscan Myoview study. Electronically signed by : Reno Bustamante MD 10/26/2021 20:07:28
--- NOTE | 2021-10-26 06:25 | CA_ITS ---
APPROVED REPORT EXAM: Comprehensive 2D, Doppler, and color-flow Echocardiogram Rn Oncology Clinical: Itzel Molina, RCS, RVS Ht: 5 ft 11 in Wt: 221lbs BSA: 2.20 BP: 132/70 mmHg Indications: CP, AFIB, Ex-smoker, SOB, Obesity 2D Dimensions IVSd 0.76 cm LVEF (Visual) 71.90 % PWd 1.12 cm LA Volume 53.30 mL LVDd 4.81 cm LA Volume Index [id number] mL/m2 (M/F) 16-34 LVDs 2.83 cm Left Atrium 4.49 cm LVOT 2.12 cm (M/F) 1.5-2.5 M-Mode Dimensions RVDd 1.93 cm (0.9-2.6) LA Diam 5.21 cm (1.9-4.0) LVDd 4.79 cm (3.5-5.7) Ao Diam 3.11 cm (2.0-3.7) LVDs 3.34 cm (3.5-5.7) IVSd 1.09 cm (0.6-1.1) PWd 1.09 cm (0.6-1.1) EF (Teich) 57.60% EPSs 0.48 cm FS 30.30% EDV (Teich) 107.00 mL TAPSE 2.24 (<1.7) ESV (Teich) 45.40 mL LV Diastology E Decel Time 127.00 (160-240 msec) E/A Ratio 3.14 MED E' 9.60 (< 7 cm/sec) MED A' 3.90 cm/s E'/MED E' Ratio 13.05 (>14) LAT A' 2.70 cm/s Aortic Valve LVOT Max 96.00 (70-110 cm/s) LVOT VTI 19.77 cm AoV Peak Taye. 125.00 (50-130 cm/s) AO Peak GR. 6.20 mmHg AO Mean GR. 3.10 (<5 mmHg) AO VTI 25.43 (18-25 cm) MOY (VTI) 2.74 (2.5-4.5 cm2) Mitral Valve MV A Velocity 40.00 (40-130 cm/s) E/A Ratio 3.14 MV Decel. Time 127.00 (160-240 ms) MV PHT 37.00 ms Pulmonary Valve PV Peak Velocity 86.00 (50-150 cm/s) MS End VMAX 86.00 cm/s Tricuspid Valve TR P. Velocity 146.00 cm/s RAP Estimate 10.00 mmHg RVSP 18.50 mmHg Left Ventricle Left atrium is mildly enlarged, left ventricle is normal size mild concentric left ventricular hypertrophy, estimated ejection fraction 55% with no regional wall motion abnormality, diastolic parameters are inconclusive. Right Ventricle Right atrium and right ventricle are mildly enlarged with normal contractility. Aortic Valve Aortic valve is minimally thickened and fibrosed there is no aortic stenosis aortic insufficiency. Mitral Valve Mitral valve grossly normal, there is trace mitral regurgitation. Tricuspid Valve Tricuspid grossly normal, there is trace tricuspid regurgitation, tricuspid regurgitation jet velocity is inadequate for calculation of the right ventricular systolic pressure. Pulmonic Valve Pulmonic valve is poorly visualized. Great Vessels Aortic root is normal size. Inferior vena cava is poorly visualized. Pericardium No significant pericardial effusion noted. Conclusion 1. Mild biatrial enlargement, normal left ventricular size, mild concentric left ventricular hypertrophy, estimated ejection fraction 55% with no regional wall motion abnormality, diastolic parameters are inconclusive. 2. Mildly enlarged right ventricle with normal contractility. 3. Trace mitral and tricuspid regurgitation. 4. No significant pericardial effusion noted. 5. Inferior vena cava is poorly visualized. Electronically signed by : Reno Bustamante MD 10/26/2021 19:45:33
--- NOTE | 2021-10-26 08:30 | HMH.ITSHM ---
Current Home Medications as stated by this patient Bucky Davila JR or client service representative. []RIVAROXABAN LEVOFLOXACIN BISOPROLOL
== END ==
LOC: RAD 06:25
PROVIDERS: PCP Emergency Medicine; Visit Provider Nurse Practitioner Family
DX: R07.9 Chest pain, unspecified (principal); R60.0 Localized edema; I48.91 Unspecified atrial fibrillation; R94.31 Abnormal electrocardiogram [ECG] [EKG]; E66.9 Obesity, unspecified; Z68.31 Body mass index [BMI] 31.0-31.9, adult
CPT/HCPCS: 78452; 93017; 93306; A9502; J2785

== ENCOUNTER → 2022-01-20 11:02 | Outpatient (CLI) | payer BC, SELFPAY ==
--- NOTE | 2022-01-20 11:08 | XR_ITS ---
FINAL REPORT TECHNIQUE: Chest PA & Lateral CLINICAL HISTORY: sob, smoker COMPARISON: September 2021 FINDINGS: 2 views of the chest were performed. The heart size is normal. There are calcified right hilar lymph nodes. There is a calcified granuloma in the right upper lobe. There is no acute airspace infiltrate. There are no pleural effusions. There is no pneumothorax. The bony thorax appears intact. IMPRESSION: No acute cardiopulmonary process. Reviewed, Interpreted and Dictated by Chuy Catalan MD Transcribed by Sukhwinder Staples Authenticated and [facility]
== END ==
PROVIDERS: PCP Emergency Medicine; Visit Provider Internal Medicine Pulmonary Disease
DX: R06.02 Shortness of breath (principal)
CPT/HCPCS: 71046

== ENCOUNTER 2022-01-21 17:25 | Emergency (ER) | payer BC, SELFPAY ==
--- NOTE | 2022-01-21 18:38 | EXP.UTC ---
Discharge Plan Disposition Patient Disposition: Home, Self-Care Condition: Good Prescriptions Prescriptions: New ciprofloxacin HCl [Cipro] 500 mg tablet 500 mg PO BID 14 Days Qty: 28 0RF No Action bisoprolol fumarate 5 mg tablet 5 mg PO QDAY Qty: 30 5RF Xarelto 20 mg tablet 20 mg PO QPMWITHMEAL Qty: 30 5RF Rx Instructions: must administer with evening meal Referrals Follow up/Referrals: Jaskaran Silva MD [Primary Care Provider] - See instructions Activity Restrictions/Add. Instructions Additional Instructions/Restrictions: Drink plenty of fluids. Take tylenol for pain or fever. Take the medications as directed. Follow up with your regular doctor. GO TO THE ER FOR ANY WORSENING SYMPTOMS Clinical Impressions Clinical Impression: Gross hematuria, UTI (urinary tract infection) Instructions Patient Instructions: DI for Urinary Tract Infection (UTI), DI for Hematuria, Ciprofloxacin Discharge ED Provider: Huang Valentine [facility] General Stated complaint: blood in urine Time Seen by Provider: 01/21/22 18:39 History of Present Illness Provider Complaint: He has been having blood in his urine for the past 10 days approx. He was referred to a urologist but he was 2 minutes late to his appointment so they would not see him today. So, out of the need for help with his gross hematuria, he came here to be evaluated. Related Data Previous Rx's Medication Instructions Recorded bisoprolol fumarate 5 mg tablet 5 mg PO QDAY #30 tabs 10/19/21 rivaroxaban 20 mg tablet (Xarelto) 20 mg PO QPMWITHMEAL AFIB #30 tabs 10/19/21 ciprofloxacin HCl 500 mg tablet 500 mg PO BID 14 days #28 tabs 01/21/22 (Cipro) Allergies Allergy/AdvReac Type Severity Reaction Status Date / Time Penicillins [PENICILLINS] Allergy Unknown is not Verified 01/20/22 10:03 effective hay fever Allergy Mild Uncoded 01/20/22 10:03 [facility] Disclaimer: The information contained in this section may have been updated after the patient was seen, as this information can be updated by other users. Medical History Abnormal electrocardiogram [ECG] [EKG] Atrial fibrillation, new onset Dyspnea on exertion Hilar lymphadenopathy History of 2019 novel coronavirus disease (COVID-19) Lung nodule seen on imaging study Obesity (BMI 30-39.9) Urinary tract infection Surgical History History of colonoscopy History of elbow surgery History of lithotripsy History of lumbar surgery Family History Other Cancer Coronary artery disease Diabetes Heart attack Hypertension Social History Smoking Status: Former smoker alcohol intake: never current occupational status: other Travel in the last 8 weeks: None ROS Obtained: Yes All systems reviewed & no additional complaints except as documented Constitutional Constitutional: Denies chills and Denies fever(s) Eyes Eyes: Denies eye discharge ENT Ears, Nose, Mouth, and Throat: Denies dizziness, Denies otalgia and Denies sore throat Cardiovascular Cardiovascular: Denies chest pain Respiratory Respiratory: Denies shortness of breath, Denies chest congestion, Denies cough, Denies stridor and Denies wheezing Gastrointestinal Gastrointestingal: Denies nausea or vomiting Musculoskeletal Musculoskeletal: Reports system reviewed and no additional complaints, except as documented and Denies arthralgias Integumentary/Breasts Skin/Breast: Denies rash Neurologic Neurologic: Denies dizziness and Denies paresthesias Allergic/Immunologic Allergic/Immunologic: Denies wheezing Physical Exam General General appearance: alert and in no apparent distress Head Head exam: atraumatic, normocephalic and normal inspection Eye Eye exam: Present normal appearance, PER
[2022-01-21 18:49] VITALS: BP 133/84; PULSE 68; RESP 16; TEMP 37.1; O2SAT 98; BMI 31.4
[2022-01-21 19:06] LABS: Apearance,Urine Turbid (Clear); Color,Urine Amber (Yellow); PH,Urine 5.5 (5.0-8.5); Specific Gravity, Urine 1.025 (1.005-1.030)
[2022-01-21 19:07] LABS: Glucose,Urine (UA) Negative (Negative); Ketones,Urine SMALL (Negative); Protein,Urine 3+ (Negative)
[2022-01-21 19:08] LABS: Blood, Urine 3+ (Negative)
[2022-01-21 19:10] LABS: Bilirubin,Urine 3+ (Negative); Urobilinogen,Urine 2 EU/dl (0.2)
[2022-01-21 19:11] LABS: UTC Leukocyte Esterase,Urine 3+ (Negative); UTC Nitrate,Urine Positive (Negative)
[2022-01-21 19:23] VITALS: BP 133/84; PULSE 68; RESP 16; TEMP 37.1
== END 2022-01-21 19:29 | disposition home or self-care (01) ==
PROVIDERS: Emergency Provider Nurse Practitioner Family; PCP Emergency Medicine
DX: R31.0 Gross hematuria (principal); N39.0 Urinary tract infection, site not specified
CPT/HCPCS: 81003; 87086; 96372; 99212; G0463; J0696

== ENCOUNTER → 2022-04-07 14:39 | Outpatient (CLI) | payer BC, SELFPAY ==
--- NOTE | 2022-04-07 14:40 | CT_ITS ---
FINAL REPORT CLINICAL HISTORY: FORMER SMOKER, QUIT 6 MONTHS AGO, 1 PPD X 18 YRS COMPARISON: 10/15/2021 FINDINGS: Low-Dose Chest CT Axial images were obtained from the lung apex to the mid abdomen by computed tomography. Low-dose protocol was utilized. CTDI vol (mGy): 2.90 DLP (mGy-cm): 114.64 There is a mildly prominent precarinal lymph node but overall lymphadenopathy in the mediastinum has improved. There is no axillary adenopathy. There is no hilar adenopathy. The heart is proper size. There is no pericardial or pleural effusion. Lung window images demonstrate a 3 mm subpleural nodule in the left lower lobe on image 40. This was not well seen on the prior exam. There is evidence of prior granulomatous disease. Previously seen right lower lobe pneumonia has resolved. No other mass or nodule is identified. Limited images of the upper abdomen are unremarkable. IMPRESSION: Lung RADS category 2. Recommend 12 month follow-up low-dose chest CT. Interval resolution of previously seen right lower lobe pneumonia. Reviewed, Interpreted and Dictated by Liliana Jackson MD Transcribed by Melissa Jordan Authenticated and [facility]
== END ==
PROVIDERS: PCP Emergency Medicine; Visit Provider Internal Medicine Pulmonary Disease
DX: Z87.891 Personal history of nicotine dependence (principal); Z12.2 Encounter for screening for malignant neoplasm of respiratory organs
CPT/HCPCS: 71271

== ENCOUNTER 2022-05-16 12:40 | Emergency (ER) | payer BC, SELFPAY ==
[2022-05-16 13:00] VITALS: BP 130/75; PULSE 103; RESP 20; TEMP 36.7; O2SAT 99; BMI 30.9
--- NOTE | 2022-05-16 13:38 | EXP.UTC ---
Discharge Plan Disposition Patient Disposition: Home, Self-Care Condition: Good Prescriptions Prescriptions: No Action Xarelto 20 mg tablet See Rx Instructions .ROUTE .COMPLEX Rx Instructions: TAKE 1 TABLET BY MOUTH EVERY EVENING WITH MEAL FOR ATRIAL FIBRILLATION bisoprolol fumarate 5 mg tablet 5 mg PO QDAY Referrals Follow up/Referrals: Jaskaran Silva MD [Primary Care Provider] - See instructions Activity Restrictions/Add. Instructions Additional Instructions/Restrictions: *Monitor Temp, Over the counter Motrin or Tylenol as directed/as needed Tylenol every 4 hours and Motrin every 6 hours (as long as your family doctor has told you that you can take it) for fever or pain. and straight to ER if unable to lower temp less than 101.0 after medication given *Warm salt water gargles may help to soothe the throat *Throat Lozenges? *Warm fluids like tea with honey may help to soothe the throat? *Sleep elevated *Humidifier/Vaporizer Your throat swab was sent for culture. Those results are typically sent to your primary care. Be sure to follow up in 2-3 days with your family doctor/primary care physician if no improvement so they can review those result and treat if necessary. If you don?t have a primary care doctor, I recommend you get one but in the mean time, you will have to return to a walk in clinic Follow up IMMEDIATELY for new or worsening symptoms or no Noticeable improvement over the next 48-72 hours. 911 for difficulty breathing or swallowing You were tested for today for COVID19 your test result should be back in the next 24-48 hours, you may check your results on the [facility] Clinical Impressions Clinical Impression: URI (upper respiratory infection) Qualifiers: URI type: unspecified URI Qualified Code(s): J06.9 - Acute upper respiratory infection, unspecified Instructions Patient Instructions: Sore Throat Discharge ED Provider: Ashleigh Kat [facility] [place] General Stated complaint: Congestion, drainage, headache Mode of Arrival: Ambulatory Source of Information: Patient Limitations: No Limitations Time Seen by Provider: 05/16/22 13:39 Description of Symptoms (Recalled from Triage Doc. by RN): sinus pressure, and drainage HEENT Symptoms (Recalled from RN notes): Yes Resp Symptoms (Recalled from RN notes): No Skin Symptoms (Recalled from RN notes): No MS Symptoms (Recalled from RN notes): No Functional Status (Recalled from RN notes): n/a History of Present Illness Provider Complaint: Patient states that he has been having sinus pressure and drainage for the last couple of days States that the drainage is clear and thinks it may be allergies or sinus infection but state that he is scheduled to have kidney stones broke up and they wanted him to get checked Related Data Home Medications Medication Instructions Recorded Confirmed bisoprolol fumarate 5 mg tablet 5 mg PO QDAY . 05/16/22 05/16/22 rivaroxaban 20 mg tablet (Xarelto) See Rx Instructions .Route 05/16/22 05/16/22 .COMPLEX . Allergies Allergy/AdvReac Type Severity Reaction Status Date / Time Penicillins [PENICILLINS] Allergy Unknown is not Verified 05/16/22 13:06 effective hay fever Allergy Mild Uncoded 01/20/22 10:03 Worker's Comp Is this a Worker's Comp case?: No [facility] Disclaimer: The information contained in this section may have been updated after the patient was seen, as this information can be updated by other users. Medical History (Updated 05/16/22 @ 14:06 by Ashleigh Kat APRN) Abnormal electrocardiogram [ECG] [EKG] Atrial fibrillation, new onset Dyspnea on exertion Hilar lymphadenopathy History of 2019 novel coronavirus disease (COVID-19) Lung nodule seen on imaging study Obesity (BMI 30-39.9) Stopped smoking with greater than 30 pack year history Urinary tract infection Surgical History Histor
[2022-05-16 13:56] LABS: UTC Strep Screen (Rapid) Negative (Negative)
[2022-05-16 14:55] VITALS: BP 130/75; PULSE 103; RESP 20; TEMP 36.7; O2SAT 98
== END 2022-05-16 14:55 | disposition home or self-care (01) ==
PROVIDERS: Emergency Provider Nurse Practitioner; PCP Emergency Medicine
DX: J06.9 Acute upper respiratory infection, unspecified (principal); R51.9 Headache, unspecified; R07.0 Pain in throat
CPT/HCPCS: 96372; 87880; 99212; 99214; G0463; J0696

== ENCOUNTER → 2022-08-18 09:15 | Outpatient (CLI) | payer BC, SELFPAY | PROVIDERS: PCP Emergency Medicine; Visit Provider Internal Medicine Pulmonary Disease | DX: R06.09 Other forms of dyspnea (principal) | CPT/HCPCS: 94060; 94618; 94726; 94729 ==

== ENCOUNTER 2022-09-21 19:59 | Emergency (ER) | payer BC, SELFPAY ==
[2022-09-21 20:00] VITALS: BP 154/97; PULSE 79; RESP 16; TEMP 36.8; O2SAT 99; BMI 32.1
--- NOTE | 2022-09-21 20:42 | PC.NURSE ---
rounded on patient, asked for pain meds, informed
--- NOTE | 2022-09-21 21:21 | HMH.EDGENADL ---
Discharge Plan Disposition Patient Disposition: Home, Self-Care Condition: Good Prescriptions Prescriptions: New prednisone 50 mg tablet 50 mg PO DAILY 5 Days Qty: 5 0RF No Action Xarelto 20 mg tablet See Rx Instructions .ROUTE .COMPLEX Qty: 30 11RF Dose Instruction: TAKE 1 TABLET BY MOUTH EVERY EVENING WITH MEAL FOR ATRIAL FIBRILLATION Rx Instructions: TAKE 1 TABLET BY MOUTH EVERY EVENING WITH MEAL FOR ATRIAL FIBRILLATION bisoprolol fumarate 5 mg tablet See Rx Instructions .ROUTE .COMPLEX Qty: 30 11RF Dose Instruction: TAKE 1 TABLET BY MOUTH EVERY DAY Rx Instructions: TAKE 1 TABLET BY MOUTH EVERY DAY Referrals Follow up/Referrals: Jaskaran Silva MD [Primary Care Provider] - See instructions Activity Restrictions/Add. Instructions Additional Instructions/Restrictions: You were evaluated in the emergency department today. Please follow-up closely with your primary care provider over the next 48 hours. I also recommend follow-up with ophthalmology to ensure that your eye is healed well. Use the eye ointment provided to you 4 times a day for the next 5 days. customer support analyst your prescription for steroids and also take them for the next 5 days. Return to the emergency department for new or worsening symptoms, such as fevers, severe pain with eye movements, or other concerns. Continue taking Benadryl at home as needed for symptoms. Clinical Impressions Clinical Impression: Acute allergic conjunctivitis of both eyes Instructions Patient Instructions: DI for Eye Allergic Reaction Discharge ED Provider: Clair Villalta General Adult HPI General Chief complaint: Allergic Reaction Stated complaint: face and throat selling Time Seen by Provider: 09/21/22 20:04 Mode of Arrival: Ambulatory Source of Information: Patient Limitations: No Limitations Description of Symptoms (Recalled from ER Triage Doc. by RN): pt states eye have been red for 3 days. today around 3pm eye began swelling and dry itching throat. pt states this happens every year at this time. 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 He states that started 3 days ago after working, and he has been taking Benadryl at home without improvement. He has throat also feels dry and itchy. He has had no abdominal pain, nausea, vomiting, changes in bowel movements, or other concerns. No difficulty breathing. No significant pain with extraocular movement or other issues. On medical record review, patient had similar issues in the past and was treated with ocular antibiotic ointment as well as oral steroids. He states that this resolved his symptoms. No chemical exposures, fevers, or other concerns noted. Related Data Previous Rx's Medication Instructions Recorded bisoprolol fumarate 5 mg tablet See Rx Instructions .Route 06/16/22 .COMPLEX #30 tabs rivaroxaban 20 mg tablet (Xarelto) See Rx Instructions .Route 06/16/22 .COMPLEX #30 tabs prednisone 50 mg tablet 50 mg PO DAILY 5 days #5 tabs 09/21/22 Allergies Allergy/AdvReac Type Severity Reaction Status Date / Time Penicillins [PENICILLINS] Allergy Unknown is not Verified 05/16/22 13:06 effective hay fever Allergy Mild Uncoded 01/20/22 10:03 [facility] Disclaimer: The information contained in this section may have been updated after the patient was seen, as this information can be updated by other users. Medical History Abnormal electrocardiogram [ECG] [EKG] Atrial fibrillation, new onset Dyspnea on exertion Hilar lymphadenopathy History of 2019 novel coronavirus disease (COVID-19) Lung nodule seen on imaging study Obesity (BMI 30-39.9) Stopped smoking with greater than 30 pack year history Urinary tract infection Surgical
[2022-09-21 21:54] VITALS: BP 149/78; PULSE 74; RESP 16; TEMP 36.8; O2SAT 99
== END 2022-09-21 21:55 | disposition home or self-care (01) ==
PROVIDERS: Emergency Provider Emergency Medicine; PCP Emergency Medicine
DX: H10.13 Acute atopic conjunctivitis, bilateral (principal); R22.0 Localized swelling, mass and lump, head; I48.91 Unspecified atrial fibrillation; Z87.891 Personal history of nicotine dependence
CPT/HCPCS: 99283

== ENCOUNTER → 2023-02-16 16:52 | Outpatient (CLI) | payer BC, SELFPAY ==
[2023-02-16 16:16] LABS: Basophils # 0.1 K/mm3 (0-0.2); Basophils % 0.8 % (0.1-2.0); Eosinophils # 0.3 K/mm3 (0.0-0.4); Eosinophils % 4.6 % (0.1-12.0); Hematocrit 45.6 % (42.0-52.0); Hemoglobin 15.2 g/dL (14.1-18.0); Lymphocytes # 1.9 K/mm3 (0.7-4.5); Lymphocytes % 31.9 % (10-50); Mean Corpuscular HGB Conc 33.3 g/dL (31.8-35.4); Mean Corpuscular Hemoglobin 31.9 pg (27.0-31.2); Mean Corpuscular Volume 95.8 fl (80-94); Mean Platelet Volume 9.6 fl (7.4-10.4); Monocytes # 0.4 K/mm3 (0.1-1.0); Monocytes % 7.2 % (1.7-9.3); Neutrophils # 3.4 K/mm3 (1.8-7.8); Neutrophils % 55.5 % (37.0-80.0); Platelet Count 262 K/mm3 (142-424); Red Blood Count 4.77 M/mm3 (4.60-6.20); Red Cell Distribution Width 12.4 % (11.5-17.5); White Blood Count 6.1 K/mm3 (4.8-10.8)
[2023-02-16 16:21] LABS: Alanine Aminotransferase 27 U/L (12-78); Albumin Level 4.1 g/dl (3.5-5.0); Albumin/Globulin Ratio 1.4 (1.1-1.8); Alkaline Phosphatase 77 U/L (38-126); Anion Gap 10.7 mEq/L (5-15); Aspartate Amino Transferase 34 U/L (17-59); Bilirubin,Total 0.4 mg/dl (0.2-1.3); Blood Urea Nitrogen 16 mg/dl (9-20); Calcium 8.8 mg/dl (8.4-10.2); Carbon Dioxide 21 mmol/L (22.0-30.0); Chloride 108 mmol/L (98-107); Chol/HDL Ratio 5.5 (1-3.5); Cholesterol 237 mg/dl (140-200); Estimated Glomerular Filt Rate 100 ml/min (>60); GFR (African American) 121 ML/MIN (>60); Globulin 2.9 g/dL (1.3-3.2); Glucose 230 mg/dl (74-100); HDL Cholesterol 43 mg/dl (40-60); Potassium 4.7 mmoL/L (3.5-5.1); Sodium 135 mmol/L (136-145); Triglycerides 146 mg/dl (30-150); VLDL Cholesterol 29 mg/dL (0-40)
[2023-02-16 16:28] LABS: Iron 92 ug/dL (49-181)
[2023-02-16 16:31] LABS: Direct LDL Cholesterol 153.93 mg/dL (100-129)
[2023-02-16 16:37] LABS: 25-OH Vitamin D, Total 20.2 ng/mL (30-100)
[2023-02-16 16:51] LABS: Thyroid Stimulating Hormone 0.81 uIU/mL (0.465-4.68)
[2023-02-16 16:52] LABS: Microalbumin/Creatinine Ratio 8.5
[2023-02-16 16:54] LABS: Creatinine,Urine Random 147 mg/dL (Not Estab.)
[2023-02-16 16:57] LABS: Total Iron Binding Capacity 335 ug/dL (261-462)
[2023-02-16 17:06] LABS: Ferritin 44.1 ng/ml (17.9-464)
[2023-02-16 17:10] LABS: Vitamin B12 363 pg/mL (239-931)
[2023-02-16 17:20] LABS: Hemoglobin A1C 7.7 % (4.0-6.0)
== END ==
LOC: LAB.DROPOF 16:52
PROVIDERS: PCP Internal Medicine; Visit Provider Internal Medicine
DX: D64.9 Anemia, unspecified (principal); E55.9 Vitamin D deficiency, unspecified; E66.9 Obesity, unspecified; Z68.32 Body mass index [BMI] 32.0-32.9, adult; Z79.899 Other long term (current) drug therapy
CPT/HCPCS: 80053; 80061; 82043; 82306; 82570; 82607; 82728; 83036; 83540; 83550; 84443; 85025

== ENCOUNTER 2023-03-16 08:13 | Outpatient (CLI) | payer BC, SELFPAY ==
--- NOTE | 2023-03-16 08:13 | CT_ITS ---
FINAL REPORT TECHNIQUE: Axial CT images of the chest were obtained without contrast. Low-dose protocol was utilized. This study was performed with techniques to keep radiation doses as low as reasonably achievable (ALARA). Individualized dose reduction techniques using automated exposure control or adjustment of mA and/or kV according to the patient's size were employed. CLINICAL HISTORY: lung cancer screening former smoker for 1 year 1 ppd x 20 years COMPARISON: 04/07/2022 FINDINGS: CT CHEST WITHOUT, LOW DOSE SCREENING CT Di Vol: 2.90 mGy DLP: 107.33 mGy*cm There is no axillary, mediastinal, or hilar adenopathy. The heart size is normal. There is no pleural or pericardial effusion. The lung windows show no suspicious mass or nodule. The previously noted left lower lobe nodule is not seen on this exam. Limited images of the upper abdomen demonstrate no acute findings. IMPRESSION: LR Category 1: 12 month follow-up low-dose chest CT is recommended. Reviewed, Interpreted and Dictated by Chuy Catalan MD Transcribed by Gina Harrington Authenticated and [facility]
--- NOTE | 2023-03-16 08:13 | XR_ITS ---
FINAL REPORT CLINICAL HISTORY: Left foot pain COMPARISON: None FINDINGS: LEFT FOOT Three views of the left foot demonstrate no acute fracture or dislocation. The visualized joint spaces are normally aligned. There is a moderate plantar spur. The soft tissues are unremarkable. IMPRESSION: No acute bony abnormality. Moderate plantar spur. Reviewed, Interpreted and Dictated by Chuy Catalan MD Transcribed by Gina Harrington Authenticated and [facility]
--- NOTE | 2023-03-16 08:13 | XR_ITS ---
FINAL REPORT CLINICAL HISTORY: Right foot pain COMPARISON: None FINDINGS: RIGHT FOOT 3 views of the right foot were obtained. There is no acute fracture or dislocation. Visualized joint spaces are normally aligned. There is a moderate plantar spur. There is a prominent os trigonum measuring 1.2 cm. Soft tissues are unremarkable. IMPRESSION: No acute bony abnormality. Moderate plantar spur. Reviewed, Interpreted and Dictated by Chuy Catalan MD Transcribed by Gina Harrington Authenticated and [facility]
== END 2023-03-16 23:59 ==
LOC: RAD 08:13
PROVIDERS: PCP Internal Medicine; Visit Provider Internal Medicine
DX: R59.0 Localized enlarged lymph nodes (principal); R91.1 Solitary pulmonary nodule; M79.671 Pain in right foot; M79.672 Pain in left foot; Z87.891 Personal history of nicotine dependence
CPT/HCPCS: 71271; 73630

== ENCOUNTER 2023-04-27 21:42 | Outpatient (CLI) | payer BC, SELFPAY ==
[2023-04-27 18:42] LABS: Basophils % 0.5 % (0.1-2.0); Eosinophils # 0.2 K/mm3 (0.0-0.4); Eosinophils % 3.2 % (0.1-12.0); Hematocrit 46.9 % (42.0-52.0); Hemoglobin 14.8 g/dL (14.1-18.0); Lymphocytes # 2.2 K/mm3 (0.7-4.5); Lymphocytes % 29.6 % (10-50); Mean Corpuscular HGB Conc 31.6 g/dL (31.8-35.4); Mean Corpuscular Hemoglobin 32.4 pg (27.0-31.2); Mean Corpuscular Volume 102.5 fl (80-94); Mean Platelet Volume 9.2 fl (7.4-10.4); Monocytes # 0.6 K/mm3 (0.1-1.0); Monocytes % 8.1 % (1.7-9.3); Neutrophils # 4.3 K/mm3 (1.8-7.8); Neutrophils % 58.6 % (37.0-80.0); Platelet Count 227 K/mm3 (142-424); Red Blood Count 4.57 M/mm3 (4.60-6.20); Red Cell Distribution Width 12.7 % (11.5-17.5); White Blood Count 7.4 K/mm3 (4.8-10.8)
[2023-04-27 19:06] LABS: Hemoglobin A1C 8.3 % (4.0-6.0)
[2023-04-27 19:52] LABS: Chloride 104 mmol/L (98-107); Potassium 4.6 mmoL/L (3.5-5.1); Sodium 138 mmol/L (136-145)
[2023-04-27 19:54] LABS: Blood Urea Nitrogen 16 mg/dl (9-20); Estimated Glomerular Filt Rate 99 ml/min (>60); GFR (African American) 120 ML/MIN (>60)
[2023-04-27 19:55] LABS: Alanine Aminotransferase 36 U/L (12-78); Albumin/Globulin Ratio 1.5 (1.1-1.8); Alkaline Phosphatase 69 U/L (38-126); Anion Gap 7.6 mEq/L (5-15); Aspartate Amino Transferase 33 U/L (17-59); Bilirubin,Total 0.7 mg/dl (0.2-1.3); Carbon Dioxide 31 mmol/L (22.0-30.0); Globulin 2.7 g/dL (1.3-3.2); Glucose 116 mg/dl (74-100); Total Protein,Serum 6.7 g/dl (6.3-8.2)
[2023-04-27 19:58] LABS: Creatinine,Urine Random 140 mg/dL (Not Estab.)
[2023-04-27 19:59] LABS: Microalbumin/Creatinine Ratio 5.8
[2023-04-27 20:31] LABS: 25-OH Vitamin D, Total 27.2 ng/mL (30-100)
== END 2023-04-27 23:59 ==
LOC: LAB.DROPOF 21:43
PROVIDERS: PCP Internal Medicine; Visit Provider Internal Medicine
DX: E11.69 Type 2 diabetes mellitus with other specified complication (principal); R53.83 Other fatigue; E55.9 Vitamin D deficiency, unspecified; E78.2 Mixed hyperlipidemia; D64.9 Anemia, unspecified; E66.9 Obesity, unspecified; Z68.32 Body mass index [BMI] 32.0-32.9, adult; Z79.84 Long term (current) use of oral hypoglycemic drugs
CPT/HCPCS: 80053; 82043; 82306; 82570; 83036; 85025

== ENCOUNTER 2023-07-06 13:03 | Outpatient (CLI) | payer BC, SELFPAY ==
[2023-07-06 18:48] LABS: Alanine Aminotransferase 26 U/L (12-78); Albumin Level 4.2 g/dl (3.5-5.0); Albumin/Globulin Ratio 1.4 (1.1-1.8); Alkaline Phosphatase 68 U/L (38-126); Anion Gap 13.2 mEq/L (5-15); Aspartate Amino Transferase 29 U/L (17-59); Bilirubin,Total 0.6 mg/dl (0.2-1.3); Blood Urea Nitrogen 17 mg/dl (9-20); Calcium 9.7 mg/dl (8.4-10.2); Carbon Dioxide 29 mmol/L (22.0-30.0); Chloride 102 mmol/L (98-107); Chol/HDL Ratio 2.5 (1-3.5); Cholesterol 175 mg/dl (140-200); Estimated Glomerular Filt Rate 87 ml/min (>60); GFR (African American) 105 ML/MIN (>60); Globulin 3.1 g/dL (1.3-3.2); Glucose 106 mg/dl (74-100); HDL Cholesterol 71 mg/dl (40-60); Potassium 4.2 mmoL/L (3.5-5.1); Sodium 140 mmol/L (136-145); Total Protein,Serum 7.3 g/dl (6.3-8.2); Triglycerides 88 mg/dl (30-150); VLDL Cholesterol 18 mg/dL (0-40)
[2023-07-06 19:06] LABS: Direct LDL Cholesterol 91.51 mg/dL (100-129)
== END 2023-07-06 23:59 | disposition home or self-care (01) ==
LOC: LAB.DROPOF 07-07 13:04
PROVIDERS: PCP Internal Medicine; Visit Provider Internal Medicine
DX: E11.42 Type 2 diabetes mellitus with diabetic polyneuropathy (principal); E66.9 Obesity, unspecified; Z68.32 Body mass index [BMI] 32.0-32.9, adult
CPT/HCPCS: 80053; 80061

== ENCOUNTER 2023-08-07 17:39 | Emergency (ER) | payer BC, SELFPAY ==
[2023-08-07 18:00] VITALS: BP 122/73; PULSE 97; RESP 21; TEMP 36.7; O2SAT 99; BMI 32.3
--- NOTE | 2023-08-07 18:38 | ED_ITS ---
Discharge Plan Disposition Patient Disposition: Home, Self-Care Condition: Good Prescriptions Prescriptions: New methylprednisolone [Medrol (Benny)] 4 mg tablets,dose pack See Rx Instructions .ROUTE .COMPLEX 6 Days Qty: 21 0RF Rx Instructions: 4 mg orally ;Medrol dose taper benny No Action atorvastatin 10 mg tablet 10 mg PO DAILY bisoprolol fumarate 5 mg tablet 5 mg PO DAILY cholecalciferol (vitamin D3) 25 mcg (1,000 unit) capsule 25 mcg PO DAILY Xarelto 20 mg tablet 20 mg PO DAILY Referrals Follow up/Referrals: Sander Louis DO [Primary Care Provider] - See instructions Activity Restrictions/Add. Instructions Additional Instructions/Restrictions: Take medication as prescribed. If symptoms persist or worsen, follow up with primary care provider Clinical Impressions Clinical Impression: Sinusitis, acute Qualifiers: Sinusitis location: pansinusitis Recurrence: not specified as recurrent Qualified Code(s): J01.40 - Acute pansinusitis, unspecified Instructions Patient Instructions: DI for Sinusitis Discharge ED Provider: Kami Montgomery [facility] General Stated complaint: sore throat Mode of Arrival: Ambulatory Source of Information: Patient Limitations: No Limitations Time Seen by Provider: 08/07/23 18:38 Description of Symptoms (Recalled from Triage Doc. by RN): PATIENT C/O SWOLLEN GLANDS TO THROAT/NECK AND DRAINAGE FROM EYES/NOSE X 10 DAYS HEENT Symptoms (Recalled from RN notes): Yes Resp Symptoms (Recalled from RN notes): No Skin Symptoms (Recalled from RN notes): No MS Symptoms (Recalled from RN notes): No Functional Status (Recalled from RN notes): WNL History of Present Illness Provider Complaint: Pt relates that his symptoms started 10 days ago. 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 He reports that he just started an allergy medication yesterday. He is concerned that he has a lot of face swelling and his face is peeling. He reports that his drainage is clear. Related Data Home Medications Medication Instructions Recorded Confirmed atorvastatin 10 mg tablet 10 mg PO DAILY 08/07/23 08/07/23 bisoprolol fumarate 5 mg tablet 5 mg PO DAILY 08/07/23 08/07/23 cholecalciferol (vitamin D3) 25 25 mcg PO DAILY 08/07/23 08/07/23 mcg (1,000 unit) capsule rivaroxaban 20 mg tablet (Xarelto) 20 mg PO DAILY 08/07/23 08/07/23 Previous Rx's Medication Instructions Recorded methylprednisolone 4 mg tablets in See Rx Instructions .Route 08/07/23 a dose pack (Medrol (Benny)) .COMPLEX 6 days #21 tabs Allergies Allergy/AdvReac Type Severity Reaction Status Date / Time Penicillins [PENICILLINS] Allergy Unknown is not Verified 07/06/23 13:33 effective hay fever Allergy Mild Uncoded 07/06/23 13:33 Worker's Comp Is this a Worker's Comp case?: No [facility] Disclaimer: The information contained in this section may have been updated after the patient was seen, as this information can be updated by other users. Medical History Stopped smoking with greater than 30 pack year history Lung nodule seen on imaging study Hilar lymphadenopathy Patient had a CT scan done February 2023. Recommendation was to follow-up in 12 months. Will follow. History of 2019 novel coronavirus disease (COVID-19) Dyspnea on exertion Abnormal electrocardiogram [ECG] [EKG] Obesity (BMI 30-39.9) We could consider adding semaglutide if his A1c is continues to be greater than 7. At this point we will make sure he is taking the metformin twice a day as he was supposed to be doing and increase this if necessary. He is to check his blood sugars as indicated. Semaglutide would be helpful for weight loss and we can certainly consider this as an addition in the future for blood sugar control. Atrial fibrillation, new onset Urinary tract infection Surgical History History of lithotripsy History of colonoscopy History of elbow surgery History of lumbar surgery Family History Other Cancer Coronary artery disease Diabetes Heart attack Hypertension Social History Smoking Status: Former smoker alcohol intake: never current occupational status: other Travel in the last 8 weeks: None ROS Obtained: Yes All systems reviewed & no additional complaints except as documented Constitutional Constitutional: Reports system reviewed and no additional complaints, except as documented and Reports malaise Eyes Eyes: Reports system reviewed and no additional complaints, except as documented and Reports itchy eyes ENT Ears, Nose, Mouth, and Throat: Reports system reviewed and no additional complaints, except as documented, Reports facial pain, Reports nasal congestion, Reports nasal discharge, Reports post nasal drip and Reports sore throat Cardiovascular Cardiovascular: Reports system reviewed and no additional complaints, except as documented Respiratory Respiratory: Reports system reviewed and no additional complaints, except as documented Gastrointestinal Gastrointestingal: Reports system reviewed and no additional complaints, except as documented Genitourinary Male Genitourinary: Reports system reviewed and no additional complaints, except as documented Musculoskeletal Musculoskeletal: Reports system reviewed and no additional complaints, except as documented Integumentary/Breasts Skin/Breast: Reports system reviewed and no additional complaints, except as documented Neurologic Neurologic: Reports system reviewed and no additional complaints, except as documented Endocrine Endocrine: Reports system reviewed and no additional complaints, except as documented Hematologic/Lymphatic Henatologic/Lymphatic: Reports system reviewed and no additional complaints, except as documented Allergic/Immunologic Allergic/Immunologic: Reports system reviewed and no additional complaints, except as documented, Reports itchy eyes and Reports seasonal rhinorrhea Physical Exam General General appearance: alert Comment: ill appearing Head Head exam: atraumatic and normocephalic Eye Eye exam: Present normal appearance Expanded ENT Exam External ear exam: Present normal external inspection Nose exam: Present sinus tenderness Nasal speculum exam: Bilateral: other (clear drainage) Mouth exam: Present normal external inspection Teeth exam: Present normal inspection Throat exam: Present normal inspection Neck Neck exam: Present normal inspection; Absent lymphadenopathy Chest Chest inspection: Present normal inspection and symmetric chest wall rise Respiratory Respiratory exam: Present normal lung sounds bilaterally Cardiovascular Cardiovascular exam: Present regular rate, normal rhythm and normal heart sounds Abdominal Exam Abdominal exam: Present soft and normal bowel sounds Extremities Exam Extremities exam: Present normal inspection Back Exam Back exam: Present normal inspection Neurological Exam Neurological exam: Present alert and oriented X3 Psychiatric Psychiatric exam: Present normal affect and normal mood Skin Skin exam: Present warm, dry and intact Lymphatic Lymphatic Findings: no adenopathy Medical Decision Making Rik Inquiry Pt receiving controlled substance: No Vital Signs: 08/07/23 18:00 Temperature 98.1 F Temperature Source Oral Pulse Rate [Left Brachial] 97 H Respiratory Rate 21 Blood Pressure [Left Arm] 122/73 Blood Pressure Mean [Left Arm] 89 Blood Pressure Source [Left Arm] Automatic Cuff Blood Pressure Position [Left Arm] Sitting 02 Sat by Pulse Oximetry 99 Oxygen Delivery Method Room Air
[2023-08-07 18:54] VITALS: BP 122/73; PULSE 97; RESP 21; TEMP 36.7; O2SAT 99
== END 2023-08-07 18:56 | disposition home or self-care (01) ==
PROVIDERS: Emergency Provider Nurse Practitioner Family; PCP Internal Medicine
DX: J01.40 Acute pansinusitis, unspecified (principal); R07.0 Pain in throat
CPT/HCPCS: 99212; 99214; G0463

== ENCOUNTER 2024-01-25 15:30 | Outpatient (CLI) | payer BC, SELFPAY ==
[2024-01-25 19:36] LABS: Hemoglobin A1C 8.2 % (4.0-6.0)
[2024-01-25 19:42] LABS: Microalbumin/Creatinine Ratio 4.8; Prostate Specific Ag Screen 0.6 ng/ml (0.0-4.0)
[2024-01-25 19:55] LABS: Creatinine,Urine Random 124 mg/dL (Not Estab.)
== END 2024-01-25 23:59 | disposition home or self-care (01) ==
LOC: LAB.DROPOF 01-26 09:28
PROVIDERS: PCP Internal Medicine; Visit Provider Internal Medicine
DX: E11.42 Type 2 diabetes mellitus with diabetic polyneuropathy (principal); Z79.84 Long term (current) use of oral hypoglycemic drugs
CPT/HCPCS: 82043; 82306; 82570; 83036; G0103

== ENCOUNTER 2024-02-17 19:15 | Emergency (ER) | payer BC, SELFPAY ==
[2024-02-17 19:34] VITALS: BP 128/94; PULSE 102; RESP 18; TEMP 37.2; O2SAT 96; BMI 33.5
--- NOTE | 2024-02-17 19:40 | EXP.UTC ---
Discharge Plan Disposition Patient Disposition: Home, Self-Care Condition: Good Prescriptions Prescriptions: New benzonatate 100 mg capsule 100 mg PO TIDP PRN (Reason: Cough) Qty: 30 0RF ondansetron 4 mg Tablet,Disintegrating 4 mg PO Q8H PRN (Reason: Nausea) Qty: 12 0RF No Action atorvastatin 10 mg tablet See Rx Instructions .ROUTE .COMPLEX Qty: 90 3RF Dose Instruction: TAKE 1 TABLET BY MOUTH EVERY DAY Rx Instructions: TAKE 1 TABLET BY MOUTH EVERY DAY bisoprolol fumarate 5 mg tablet 5 mg PO DAILY Qty: 90 3RF cholecalciferol (vitamin D3) 25 mcg (1,000 unit) capsule See Rx Instructions .ROUTE .COMPLEX Qty: 90 1RF Dose Instruction: TAKE 1 TABLET BY MOUTH EVERY DAY Rx Instructions: TAKE 1 TABLET BY MOUTH EVERY DAY Xarelto 20 mg tablet 20 mg PO DAILY Qty: 90 3RF metformin 500 mg tablet 1,000 mg PO BID 90 Days Qty: 360 3RF Referrals Follow up/Referrals: Sander Louis DO [Primary Care Provider] - See instructions Activity Restrictions/Add. Instructions Additional Instructions/Restrictions: Drink plenty of fluids. Take tylenol or ibuprofen for pain or fever. Take the medications as directed. Follow up with your regular doctor. GO TO THE ER FOR ANY WORSENING SYMPTOMS Clinical Impressions Clinical Impression: COVID-19 Instructions Patient Instructions: Ondansetron, Benzonatate, COVID-19 Print Language Print Language: Qatari Discharge ED Provider: Huang Valentine [facility] General Stated complaint: exp to covid porsha diarrhea Mode of Arrival: Ambulatory Source of Information: Patient Time Seen by Provider: 02/17/24 19:34 Description of Symptoms (Recalled from Triage Doc. by RN): COVID TESTING, EXP BY HIS , COUGH AND CONGESTION, UTI S/S HEENT Symptoms (Recalled from RN notes): Yes Resp Symptoms (Recalled from RN notes): Yes Skin Symptoms (Recalled from RN notes): No MS Symptoms (Recalled from RN notes): No Functional Status (Recalled from RN notes): WNL Related Data Previous Rx's ?Medication ?Instructions ?Recorded atorvastatin 10 mg tablet See Rx Instructions .Route 01/25/24 .COMPLEX #90 tabs bisoprolol fumarate 5 mg tablet 5 mg PO DAILY #90 tabs 01/25/24 cholecalciferol (vitamin D3) 25 See Rx Instructions .Route 01/25/24 mcg (1,000 unit) capsule .COMPLEX #90 caps rivaroxaban 20 mg tablet (Xarelto) 20 mg PO DAILY #90 tabs 01/25/24 metformin 500 mg tablet 1,000 mg (2 x 500 mg) PO BID 90 01/29/24 days #360 tabs benzonatate 100 mg capsule 100 mg PO TIDP PRN Cough #30 caps 02/17/24 ondansetron 4 mg disintegrating 4 mg PO Q8H PRN Nausea #12 tabs 02/17/24 tablet Allergies Allergy/AdvReac Type Severity Reaction Status Date / Time Penicillins (PENICILLINS) Allergy Unknown is not Verified 01/30/24 15:04 effective hay fever Allergy Mild Uncoded 07/06/23 13:33 Worker's Comp Is this a Worker's Comp case?: No [facility] Disclaimer: The information contained in this section may have been updated after the patient was seen, as this information can be updated by other users. Medical History Stopped smoking with greater than 30 pack year history Lung nodule seen on imaging study Hilar lymphadenopathy History of 2019 novel coronavirus disease (COVID-19) Dyspnea on exertion Abnormal electrocardiogram [ECG] [EKG] Obesity (BMI 30-39.9) Atrial fibrillation, new onset Urinary tract infection Surgical History History of lithotripsy History of colonoscopy History of elbow surgery History of lumbar surgery Family History Other Cancer Coronary artery disease Diabetes Heart attack Hypertension Social History Smoking Status: Former smoker alcohol intake: never current occupational status: other Travel in the last 8 weeks: None Have you lived/traveled outside [place] in past 30 days?: No Contact w/someone who lives/traveled outside [place] past 30 days?: No Exposure to someone with infectious disease in past 14 days?: No Do you have a fever (greater than 100.4 F or 38 C)?: No Have you tested positive for COVID-19: No Exposed to someone with COVID-19 in past 14 days?: No Do you have a sore throat?: No Do you have a cough?: No Do you have any weakness?: No Do you have any diarrhea?: Yes Are you experiencing any unusual bleeding?: No Do you have any muscle aches/pain?: No Do you have any abdominal pain?: No Are you experiencing loss of taste or smell?: No ROS Obtained: Yes All systems reviewed & no additional complaints except as documented Constitutional Constitutional: Reports chills and Reports fever(s) Eyes Eyes: Denies eye discharge ENT Ears, Nose, Mouth, and Throat: Reports as per HPI Cardiovascular Cardiovascular: Denies chest pain Respiratory Respiratory: Denies chest congestion and Reports cough Gastrointestinal Gastrointestingal: Reports nausea; Denies abdominal pain, constipation, cramping, diarrhea or vomiting Musculoskeletal Musculoskeletal: Denies arthralgias Integumentary/Breasts Skin/Breast: Denies rash Neurologic Neurologic: Denies paresthesias Physical Exam General General appearance: alert and in no apparent distress Head Head exam: atraumatic, normocephalic and normal inspection Eye Eye exam: Present normal appearance, PERRL and EOMI ENT ENT exam: Present mucous membranes moist and normal external ear exam Expanded ENT Exam TM/Canal exam: Bilateral TM: erythema and bulging Nose exam: Absent sinus tenderness Mouth exam: Present normal external inspection; Absent drooling Teeth exam: Present normal inspection Throat exam: Present tonsillar erythema, tonsillomegaly and tonsillar exudate Neck Neck exam: Present normal inspection, full ROM and trachea midline; Absent tenderness, meningismus or lymphadenopathy Chest Chest inspection: Present normal inspection and symmetric chest wall rise; Absent tenderness Respiratory Respiratory exam: Present normal lung sounds bilaterally; Absent respiratory distress, wheezes, stridor or accessory muscle use Cardiovascular Cardiovascular exam: Present regular rate and normal rhythm; Absent systolic murmur or diastolic murmur Abdominal Exam Abdominal exam: Present soft and normal bowel sounds; Absent distention, tenderness, guarding, rebound or rigidity Extremities Exam Extremities exam: Present normal inspection and normal capillary refill; Absent calf tenderness Back Exam Back exam: Present normal inspection and full ROM; Absent tenderness, CVA tenderness (R) or CVA tenderness (L) Neurological Exam Neurological exam: Present alert, oriented X3 and CN II-XII intact Psychiatric Psychiatric exam: Present normal affect and normal mood Skin Skin exam: Present warm, dry, intact and normal color Medical Decision Making Medical Records Medical records reviewed: No I reviewed the patient's medical records. Screening: Per USPSTF and CDC recommendations, given the prevalence of disease in our region, it is our hospital?s policy to screen for HIV and viral Hepatitis for all patients aged 18 and over and those with ongoing risk factors. Rik Inquiry Pt receiving controlled substance: No Vital Signs: 02/17/24 19:34 Temperature 98.9 F Temperature Source Oral Pulse Rate [Left Brachial] 102 H Respiratory Rate 18 Blood Pressure [Left Arm] 128/94 H Blood Pressure Mean [Left Arm] 105 02 Sat by Pulse Oximetry 96 Lab Data Lab results reviewed: Yes I reviewed the patient's lab results.
[2024-02-17 20:26] VITALS: BP 128/94; PULSE 102; RESP 18; TEMP 37.2
[2024-02-17 20:56] LABS: Influenza A, PCR Not Detected (NotDetected); Influenza B, PCR Not Detected (NotDetected)
[2024-02-17 23:09] LABS: Coronavirus 19, PCR Detected (NotDetected)
--- NOTE | 2024-02-18 16:20 | PC.NURSE ---
PATIENT NOTIFED OF POSITIVE COVID TEST.
== END 2024-02-17 20:29 | disposition home or self-care (01) ==
PROVIDERS: Emergency Provider Nurse Practitioner Family; PCP Internal Medicine
DX: U07.1 COVID-19 (principal)
CPT/HCPCS: 87636; 99213; G0381